=== PATIENT | male | born 1965 | race Caucasian/White ===

== ENCOUNTER → 2022-02-01 | Outpatient (CLI) | payer OTHER, SELFPAY ==
--- NOTE | 2022-02-01 08:17 | US_ITS ---
STUDY: ABDOMINAL ULTRASOUND REASON FOR EXAM: Male, 56 years old. THROMBOCYTOPENIA TECHNIQUE: Transabdominal ultrasound was performed with real-time and static pryor scale imaging. TECHNICAL QUALITY: Adequate. COMPARISON: None. FINDINGS: Liver: The liver is enlarged and measures 20.2 cm. There is a heterogeneous echogenicity of the liver. The bile ducts are within normal limits. There is hepatic color flow. The direction of portal flow is hepatopetal. There is no demonstrated mass lesion. Gallbladder: Normal distended gallbladder. The gallbladder wall measures 3 mm. There is a negative sonographic England''s sign. There is no pericholecystic fluid. There are multiple echogenic structures within the gallbladder, consistent with multiple gallstones. Common Bile Duct (C.B.D.): The common bile duct measures 4 mm. Pancreas: Normal size of the head, body and tail of the pancreas. There is a heterogeneous echogenicity of the pancreas. There is no demonstrated pancreatic mass or cyst. Spleen: There is splenomegaly. The spleen measures 16.4 cm x 7.1 cm x 6.8 cm. Right Kidney: Normal size of the right kidney. The right kidney measures 12.3 cm x 6 cm x 6.4 cm. Normal renal cortex. The right cortex measures 1.7 cm. There is a 3.7 cm x 4.6 x 4.1 cm renal cyst. There is no right hydronephrosis. Left Kidney: Normal size of the left kidney. The left kidney measures 14 cm x 5.7 cm x 5.5 cm. Normal renal cortex. The left cortex measures 2.1 cm. There is no demonstrated renal mass or cyst. There is no left hydronephrosis. Aorta: Unremarkable I.V.C.: The IVC is patent. There is no ascites. US/Abdomen Complete IMPRESSION: Hepatosplenomegaly. Multiple gallstones. Heterogeneous echotexture of the liver and pancreas. Right renal cyst. Electronically Signed: Mk Molina MD at 10:29 EDT ,
== END | disposition home or self-care (01) ==
LOC: US 08:16
PROVIDERS: PCP Student in an Organized Health Care Education/Training Program; Referring Provider Internal Medicine Medical Oncology; Visit Provider Internal Medicine Medical Oncology
DX: D69.6 Thrombocytopenia, unspecified (principal); K80.20 Calculus of gallbladder without cholecystitis without obstruction; N28.1 Cyst of kidney, acquired; R16.2 Hepatomegaly with splenomegaly, not elsewhere classified
CPT/HCPCS: 76700

== ENCOUNTER → 2022-03-27 | Outpatient (CLI) | payer OTHER, SELFPAY ==
--- NOTE | 2022-03-27 07:23 | US_ITS ---
STUDY: ABDOMINAL ULTRASOUND - ELASTOGRAPHY REASON FOR VISIT: Male, 56 years old. Heterogeneous echotexture of the liver. Hepatomegaly. TECHNIQUE: Liver stiffness measurements were obtained on a [employer] RS 85 ultrasound machine using a CA 1-7 probe following the SRU guidelines. 3 measurements were obtained using a 2-D-SWE method. The IQR/M was 22 % suggesting a quality data set. TECHNICAL QUALITY: Adequate. COMPARISON: None. FINDINGS: Liver: Heterogeneous echotexture of the liver parenchyma. Median liver stiffness measured 8.3 kPa. US/Elastography Parenchyma/Organ IMPRESSION: Liver stiffness measures 8.3 kPa compatible with F2-F3 (Mild to moderate liver fibrosis) Metavir score. Electronically Signed: Mk Molina MD at 13:43 EST ,
--- NOTE | 2022-03-27 07:50 | RAD_ITS ---
STUDY: X-RAY CHEST REASON FOR EXAM: Male, 56 years old. POLYCYTHEMIA TECHNIQUE: Frontal and lateral views of the chest. COMPARISON: None. FINDINGS: The lungs are clear and expanded. There is no demonstrated pleural abnormality. Normal size heart. Normal mediastinum and alexis. Normal visualized pulmonary arteries. Normal visualized aortic arch and descending thoracic aorta. Normal visualized thoracic spine. There is deformity of the left eighth rib consistent with an old fracture. There is no demonstrated abnormality of the visualized soft tissue structures of the upper abdomen. RAD/Chest PA and Lateral IMPRESSION: No demonstrated acute cardiopulmonary process. Electronically Signed: Erick Hess MD at 2:00 EST ,
[2022-03-27 09:33] LABS: Absolute Lymphocyte Count 0.91 X10^3/uL (0.83-4.51); Basophil# 0.04 X10^3/uL; Basophil% 0.7 % (0-1); Eosinophils% 3.5 % (0-5); Hematocrit 49.7 % (40-54); Hemoglobin 17.6 g/dL (13.0-16.5); Lymphocyte # 0.91 X10^3/ul (0.83-4.51); Lymphocyte % 15.8 % (19-41); Mean Corp Hgb Conc 35.4 g/dL (32-36); Mean Corpuscular Hgb 31.7 pg (27.0-32.0); Mean Corpuscular Volume 89.5 fL (80-94); Monocyte% 10.4 % (0-10); NRBC Flagged by Analyzer 0 % (0-5); Neutrophil # 3.99 X10^3/uL (2.7-7.7); Neutrophil % 69.1 % (47-70); POSITIVE COUNT YES; Platelet Count 90 K/mm3 (150-450); RBC Distribution Width CV 12.2 % (11.6-14.6); RBC Distribution Width SD 40.1 fl (35.1-43.9); Red Blood Count 5.55 M/mm3 (4.6-6.2); White Blood Count 5.8 K/mm3 (4.4-11.0)
[2022-03-27 10:02] LABS: AST(SGOT) 17 U/L (15-37); Alanine Aminotransfer ALT/SGPT 34 U/L (16-61); Albumin, Serum 3.9 g/dL (3.2-5.0); Alkaline Phosphatase 126 U/L (45-117); Anion Gap 8 (5-15); BUN 20 mg/dL (7-18); BUN/Creat Ratio 18.7 RATIO (10-20); Calcium,Total 9.5 mg/dL (8.5-10.1); Chloride 104 mmol/L (98-107); Creatinine, Serum 1.07 mg/dL (0.70-1.30); EST Glomerular Filtration Rate 75 mL/min (>60); Est Glom Filt Rate - Afr Amer 91 mL/min (>60); Globulin 3.8 g/dL (2.2-4.2); Glucose 104 mg/dL (74-106); LDH 176 U/L (87-241); Potassium 4.3 mmol/L (3.5-5.1); Protein, Total 7.7 g/dL (6.4-8.2); Sodium Level 139 mmol/L (136-145)
[2022-03-29 19:12] LABS: Erythropoietin 13.6 mIU/mL (2.6-18.5)
== END | disposition home or self-care (01) ==
PROVIDERS: PCP Student in an Organized Health Care Education/Training Program; Referring Provider Internal Medicine Medical Oncology; Visit Provider Internal Medicine Medical Oncology
DX: D75.1 Secondary polycythemia (principal); R16.2 Hepatomegaly with splenomegaly, not elsewhere classified
CPT/HCPCS: 36415; 71046; 76981; 80053; 82668; 83615; 85025

== ENCOUNTER → 2022-09-29 | Outpatient (CLI) | payer OTHER, SELFPAY ==
[2022-09-29 13:48] LABS: Prothrombin Time (Protime)PT. 13.6 SECONDS (11.7-14.9)
[2022-09-29 13:52] LABS: Absolute Lymphocyte Count 0.78 X10^3/uL (0.83-4.51); Absolute Neutrophil Count 3.4 X10^3/uL (2.0-7.7); Basophil# 0.04 X10^3/uL; Basophil% 0.8 % (0-1); Eosinophil# 0.19 X10^3/uL; Eosinophils% 3.8 % (0-5); Hematocrit 49.9 % (40-54); Lymphocyte # 0.78 X10^3/ul (0.83-4.51); Lymphocyte % 15.6 % (19-41); Mean Corp Hgb Conc 34.1 g/dL (32-36); Mean Corpuscular Hgb 30.3 pg (27.0-32.0); Mean Corpuscular Volume 88.9 fL (80-94); Mean Platelet Vol. 11.4 fl (6.2-12.0); Monocyte# 0.54 X10^3/uL; Monocyte% 10.8 % (0-10); NRBC Flagged by Analyzer 0 % (0-5); Neutrophil # 3.41 X10^3/uL (2.7-7.7); Neutrophil % 68.4 % (47-70); POSITIVE COUNT YES; Platelet Count 81 K/mm3 (150-450); RBC Distribution Width CV 13.1 % (11.6-14.6); RBC Distribution Width SD 42.5 fl (35.1-43.9); Red Blood Count 5.61 M/mm3 (4.6-6.2)
[2022-09-29 14:15] LABS: Hemoglobin A1c 7.9 % (3.8-5.6)
[2022-09-29 14:24] LABS: AST(SGOT) 29 U/L (15-37); Alanine Aminotransfer ALT/SGPT 44 U/L (16-61); Albumin, Serum 3.7 g/dL (3.2-5.0); Alkaline Phosphatase 133 U/L (45-117); Anion Gap 7 (5-15); BUN 20 mg/dL (7-18); BUN/Creat Ratio 20.8 RATIO (10-20); CRP < 2.90 mg/L (0.0-3.0); Calcium,Total 8.8 mg/dL (8.5-10.1); Chloride 104 mmol/L (98-107); Creatinine, Serum 0.96 mg/dL (0.70-1.30); EST Glomerular Filtration Rate 85 mL/min (>60); Est Glom Filt Rate - Afr Amer 103 mL/min (>60); Ferritin 204 ng/mL (26-388); Globulin 3.6 g/dL (2.2-4.2); Glucose 189 mg/dL (74-106); LDH 194 U/L (87-241); Potassium 4.1 mmol/L (3.5-5.1); Protein, Total 7.3 g/dL (6.4-8.2); Sodium Level 136 mmol/L (136-145)
[2022-09-29 14:37] LABS: HIV - WCH Non-Reactive (Nonreactive)
[2022-09-29 15:20] LABS: Differential Comment SCANNED; Differential Indicated SCAN CRITERIA MET; Erythrocyte Sedimentation Rate 9 mm/hr (0-20)
[2022-10-02 13:07] LABS: Anti-Centromere B Ab <0.2 AI (0.0-0.9); Anti-Chromatin 0.4 AI (0.0-0.9); Anti-Jo <0.2 AI (0.0-0.9); Anti-Mitochondrial AB <20.0 Units (0.0-20.0); Anti-Scleroderma-70 AB <0.2 AI (0.0-0.9); Anti-dsDNA Ab <1 IU/mL (0-9); RNP Ab <0.2 AI (0.0-0.9); SJOGREN'S Anti-SS-A test < 0.2 AI (0.0-0.9); SJOGREN'S Anti-SS-B test < 0.2 AI (0.0-0.9); Smith Ab <0.2 AI (0.0-0.9)
[2022-10-04 09:09] LABS: AFP, Tumor Marker 2.1 ng/mL (0.0-8.4); Angiotensin Convert Enzyme 72 U/L (14-82); Anti-Smooth Muscle ABS 13 Units (0-19); CMV Acute Antibody IgM < 30.0 AU/mL (0.0-29.9); CMV Antibody IgG < 0.60 U/mL (0.00-0.59); CMV by PCR Negative (Negative); Ceruloplasmin 19.3 mg/dL (16.0-31.0); Copper, Serum or Plasma 80 ug/dL (69-132); Cytoplasmic Ab (C-ANCA) <1:20 titer (Neg:<1:20); HEPATITIS B SURFACE AG Negative (Negative); Haptoglobin 96 mg/dL (29-370); Hep C Antibodies Non Reactive (Non Reactive); Hepatitis A IgM Antibody Negative (Negative); Hepatitis B Core AB IgM Negative (Negative); Perinuclear Ab (P-ANCA) <1:20 titer (Neg:<1:20)
== END | disposition home or self-care (01) ==
LOC: LAB 12:56
PROVIDERS: PCP Student in an Organized Health Care Education/Training Program; Referring Provider Internal Medicine Gastroenterology; Visit Provider Internal Medicine Gastroenterology
DX: R16.2 Hepatomegaly with splenomegaly, not elsewhere classified (principal)
CPT/HCPCS: 36415; 80053; 80074; 82105; 82140; 82164; 82390; 82525; 82728; 83010; 83036; 83516; 83615; 85025; 85610; 85652; 86140; 86225; 86235; 86256; 86644; 86645; 86703; 87496

== ENCOUNTER → 2022-12-28 | Outpatient (CLI) | payer OTHER, SELFPAY ==
--- NOTE | 2022-12-28 09:07 | US_ITS ---
STUDY: ABDOMINAL ULTRASOUND - RIGHT UPPER QUADRANT REASON FOR VISIT: Male, 57 years old liver/elasto TECHNIQUE: Ultrasound evaluation of the right upper quadrant was performed with real-time and static pryor-scale imaging. TECHNICAL QUALITY: Limited. Examination limited by bowel gas. COMPARISON: Comparison is made with prior study dated February 01, 2022. FINDINGS: Liver: The liver is enlarged and measures 18.4 cm. There is increased echogenicity consistent with fatty infiltration. The bile ducts are within normal limits. There is hepatic color flow. The direction of portal flow is hepatopetal. There is no demonstrated mass lesion. Gallbladder: Normal distended gallbladder. The gallbladder wall measures 3 mm. There is a negative sonographic England''s sign. There is no pericholecystic fluid. There are multiple echogenic structures within the gallbladder, consistent with multiple gallstones. Common Bile Duct (C.B.D.): The common bile duct measures 4 mm. Pancreas: Normal size of the head, body and tail of the pancreas. There is increased echogenicity of the pancreas. Limited evaluation due to overlying bowel gas. Right Kidney: Normal size of the right kidney. The right kidney measures 12.1 cm x 5.7 cm x 6.5 cm. Normal renal cortex. The right cortex measures 2.3 cm. There is a 5 cm x 5.8 cm x 4.7 cm right renal cyst. There is no right hydronephrosis. IMPRESSION: Hepatomegaly and fatty infiltration of the liver. Right renal cyst. Electronically Signed: Mk Molina MD at 16:18 EDT , STUDY: ABDOMINAL ULTRASOUND - ELASTOGRAPHY REASON FOR VISIT: Male, 57 years old. Fatty liver. TECHNIQUE: Liver stiffness measurements were obtained on a [employer] 85 ultrasound machine using a CA 1-7 probe following the SRU guidelines. 3 measurements were obtained using a 2-D-SWE method. TheIQR/M was 17 % suggesting a quality data set. TECHNICAL QUALITY: Adequate. COMPARISON: Comparison is made with prior study dated March 27, 2022. FINDINGS: Liver: There is no demonstrated mass lesion. Median liver stiffness measured 9.5 kPa. Abdomen: There is no demonstrated mass lesion. US/Abdomen Limited IMPRESSION: Liver stiffness measures 9.5 kPa compatible with F2-F3 (Mild to moderate liver fibrosis) Metavir score. Electronically Signed: Mk Molina MD at 16:22 EDT ,
== END | disposition home or self-care (01) ==
LOC: US 09:03
PROVIDERS: PCP Student in an Organized Health Care Education/Training Program; Referring Provider Internal Medicine Gastroenterology; Visit Provider Internal Medicine Gastroenterology
DX: R16.2 Hepatomegaly with splenomegaly, not elsewhere classified (principal)
CPT/HCPCS: 76705; 76981

== ENCOUNTER → 2023-01-30 | Outpatient (CLI) | payer OTHER, SELFPAY ==
[2023-01-30] VITALS (9 sets, daily range): BP systolic 134–156; BP diastolic 73–93; PULSE 62–78; RESP 14–25; TEMP 37.3; O2SAT 91–97; BMI 38.0
--- NOTE | 2023-01-30 07:57 | CT_ITS ---
PROCEDURE: CT DIRECTED CORE LIVER BIOPSY INDICATION: Male, 57 years old. Cirrhosis. PHYSICIAN: Dr. Jesse Alfonso CONSENT: Written informed consent was obtained having explained the risks, benefits and alternatives in detail with the patient who accepted the risks and agreed to proceed. Laboratory review and clinical assessment was performed. CONSCIOUS SEDATION PROTOCOL: The Drugs used were: 2 mg Versed, IV., and 50 mcg Fentanyl, IV. The sedation time was: 17 minutes. Conscious sedation was started at 8:53 AM and terminated at night. The conscious sedation protocol was independently monitored. RADIATION DOSAGE (If Supplied By Facility): CTDIvol = ( 24 ) mGy, DLP = ( 589.66 ) mGycm. Individualized dose optimization techniques were utilized. Individualized dose optimization techniques were used for this CT. TECHNIQUE: Using CT image guidance with image documentation, a suitable location in the left lobe of the liver was identified. Using an anterior approach, puncture of the liver was uneventful with an 18-gauge core needle system. 3, 18-gauge core samples were obtained, and submitted in formalin to the pathologist for further assessment. Followup CT scan revealed no distinct sequelae. CT/Biopsy/Inj or Needle Placement IMPRESSION: 1. CT directed core needle biopsy of the liver, using CT image guidance with image documentation as described. 2. Conscious Sedation protocol utilized with independent monitoring. Electronically Signed: Mk Molina MD at 9:44 EDT ,
--- NOTE | 2023-01-30 07:57 | CT_ITS ---
STUDY: CT ABDOMEN WITH AND WITHOUT CONTRAST REASON FOR EXAM: Male, 57 years old. Tripple phase. Hepatosplenomegaly. Polycythemia. RADIATION DOSAGE (If Supplied By Facility): CTDIvol = ( 24.47 ) mGy, DLP = ( 1972.25 ) mGycm TECHNIQUE: Transaxial images were obtained pre and post I.V. administration of IV 100mL Isovue-300, and with oral contrast. Sagittal and coronal images were reconstructed. Individualized dose optimization techniques were used for this CT. COMPARISON: None. FINDINGS: Mild degree of bibasilar atelectasis. Coronary artery calcification. There is hepatomegaly with diffuse hepatic enlargement. Diffuse fatty infiltration of the liver. Calcified granulomas in the liver. There are multiple gallstones. There is moderate splenomegaly. Normal pancreas. Normal bilateral adrenal glands. There is a 4.7 sign by 5.2 cm cyst in the upper lateral aspect of the right kidney. Normal left kidney. Normal visualized stomach. Normal small intestine. Normal colon. The appendix is visualized and appears normal. There is scattered atherosclerotic calcification of the abdominal aorta, without a demonstrated aneurysm. Normal inferior vena cava. Normal retroperitoneum. Normal abdominal wall. There are degenerative changes of the visualized lumbar spine. CT/Abdomen W/WO IV Contrast IMPRESSION: Hepatosplenomegaly. Multiple small gallstones. Right renal cyst. Electronically Signed: Mk Molina MD at 15:07 EDT ,
[2023-01-30] MEDS: 0.9% Saline Lock 10 ML Syringe IV (08:10)
[2023-01-30 08:16] LABS: Erythrocyte Sedimentation Rate 5 mm/hr (0-20)
[2023-01-30 08:20] LABS: Absolute Lymphocyte Count 1.04 X10^3/uL (0.83-4.51); Absolute Neutrophil Count 3.2 X10^3/uL (2.0-7.7); Basophil# 0.04 X10^3/uL; Basophil% 0.8 % (0-1); Eosinophil# 0.21 X10^3/uL; Eosinophils% 4.2 % (0-5); Hematocrit 49.4 % (40-54); Hemoglobin 17.1 g/dL (13.0-16.5); Lymphocyte # 1.04 X10^3/ul (0.83-4.51); Lymphocyte % 20.6 % (19-41); Mean Corp Hgb Conc 34.6 g/dL (32-36); Mean Corpuscular Hgb 31.5 pg (27.0-32.0); Mean Corpuscular Volume 91.1 fL (80-94); Mean Platelet Vol. 11.2 fl (6.2-12.0); Monocyte# 0.53 X10^3/uL; Monocyte% 10.5 % (0-10); NRBC Flagged by Analyzer 0 % (0-5); Neutrophil # 3.22 X10^3/uL (2.7-7.7); Neutrophil % 63.7 % (47-70); POSITIVE COUNT YES; Platelet Count 87 K/mm3 (150-450); RBC Distribution Width CV 12.9 % (11.6-14.6); Red Blood Count 5.42 M/mm3 (4.6-6.2); White Blood Count 5.1 K/mm3 (4.4-11.0)
[2023-01-30 08:23] LABS: International Normalized Ratio 1.1
[2023-01-30] MEDS: 0.9% Normal Saline (250mL Bag) 250 ML 15 ML IV (08:24)
[2023-01-30 08:28] LABS: ALB/GLOB Ratio 1.1 RATIO (0.9-2.4); AST(SGOT) 17 U/L (15-37); Alanine Aminotransfer ALT/SGPT 32 U/L (16-61); Albumin, Serum 3.7 g/dL (3.2-5.0); Alkaline Phosphatase 116 U/L (45-117); Anion Gap 6 (5-15); BUN 20 mg/dL (7-18); BUN/Creat Ratio 17.5 RATIO (10-20); CRP 3.71 mg/L (0.0-3.0); Chloride 105 mmol/L (98-107); Creatinine, Serum 1.14 mg/dL (0.70-1.30); EST Glomerular Filtration Rate 70 mL/min (>60); Est Glom Filt Rate - Afr Amer 84 mL/min (>60); Estimated Creatinine Clearance 72.04 ml/min; Globulin 3.5 g/dL (2.2-4.2); Glucose 122 mg/dL (74-106); LDH 177 U/L (87-241); Potassium 4.3 mmol/L (3.5-5.1); Protein, Total 7.2 g/dL (6.4-8.2); Sodium Level 137 mmol/L (136-145)
[2023-01-30] MEDS: Midazolam 2 MG/2 ML Syringe IV (08:53)
[2023-01-30] MEDS: fentaNYL 100 MCG/2 ML Ampul IV (08:54)
[2023-01-30] MEDS: Lidocaine 2% (20 ml mdv) 20 ML Vial INFILT (09:03)
--- NOTE | 2023-01-30 09:05 | LIVB_PTH ---
PATIENT: LIZ RUSSO LOC: CT U#:[id number] AGE/SX: 57/M ROOM: RE01/30/[address]: Dr. Bret Izquierdo DO : 1965 BED: DIS: 01/30/2023 SPEC #: [id number] RECD: 01/30/23 09:19 STATUS: JOANA REGideon #: [id number] SARA: 01/30/23 09:[address]: Bret Izquierdo DEPT: SURGICAL PATHOLOGY RECD BY: Rosalie Wood ENTERED: 01/30/23 09:33 SP TYPE: LIVER BX OTHR DR: Dr. Danish Lowe DO Tissues: Liver, NOS Procedures: PAS with Diastase (control) Trichrome (control) Special Stain Group II PAS Stain (control) Surgery Specimen Level V Retic (control) Iron Stain (control) HEADER OPERATION: Liver biopsy PRE-OP DIAGNOSIS: Hepatomegaly TISSUE SUBMITTED: Liver 18-gauge x3 MICROSCOPIC DIAGNOSIS Liver, CT-guided core biopsy: Cirrhosis. Chronic hepatitis, grade 3. Macrovesicular steatosis. See comment. AM:adeline 01/31/2023 COMMENT There is broad band fibrosis with bridging fibrosis and cirrhosis. The inflammation expands the portal areas and extends into hepatic parenchyma, focally. Reticulin stain reveals a normal hepatic parenchymal architecture. Iron stain does not reveal accumulation of intraparenchymal iron. PAS and PASD stains do not reveal accumulation of abnormal proteins. Trichrome stain confirms broad band fibrosis and cirrhosis. Clinical correlation is suggested. Case has been reviewed in consultation with Dr. Almonte who concurs with the above diagnosis. IDC:[email or web address] MICROSCOPIC DESCRIPTION Slides are reviewed. GROSS DESCRIPTION Received is one container labeled with the patient's name and not further designated. The specimen consists of three elongated fragments of valdez soft tissue measuring in aggregate 1.5 x 0.3 x 0.1 cm. The specimen is totally submitted in one cassette. / José 01/30/2023 TC:3 CPT: 07444, 19779 x5
== END | disposition home or self-care (01) ==
PROVIDERS: PCP Student in an Organized Health Care Education/Training Program; Referring Provider Internal Medicine Gastroenterology; Visit Provider Internal Medicine Gastroenterology
DX: K74.60 Unspecified cirrhosis of liver (principal); K73.9 Chronic hepatitis, unspecified; K76.0 Fatty (change of) liver, not elsewhere classified; R16.2 Hepatomegaly with splenomegaly, not elsewhere classified
CPT/HCPCS: 47000; 36415; 74170; 77012; 80053; 82140; 83615; 85025; 85610; 85652; 86140; 88307; 88313; 99156; J7050; Q9967; A4216

== ENCOUNTER 2023-03-22 07:45 | Day surgery (SDC) | payer OTHER, SELFPAY ==
[2023-03-22] VITALS (7 sets, daily range): BP systolic 106–145; BP diastolic 62–92; PULSE 75–82; RESP 16; TEMP 36.5–37.1; O2SAT 93–95; BMI 37.3
--- NOTE | 2023-03-22 | EGD_PTH ---
PATIENT: LIZ RUSSO LOC: EN U#:[id number] AGE/SX: 57/M ROOM: RE03/22/[address]: Dr. Bret Izquierdo DO : 1965 BED: DIS: 03/22/2023 SPEC #: [id number] RECD: 03/22/23 10:34 STATUS: JOANA ROYER #: [id number] SARA: 03/22/23 00:[address]: Bret Izquierdo DEPT: SURGICAL PATHOLOGY RECD BY: Najma Montes ENTERED: 03/22/23 12:28 SP TYPE: EGD BIOPSY OT DR: Dr. Danish Lowe DO Tissues: A - Gastric mucous membrane B - Esophageal mucous membrane Procedures: Special Stain Group II Surgery Specimen Level IV Alcian Blue/PAS (control) HEADER OPERATION: EGD with biopsy PRE-OP DIAGNOSIS: Hepatosplenomegaly, polycythemia, thrombocytopenia, fatty liver TISSUE SUBMITTED: A - Antrum biopsy for H. pylori and path, B - Distal esophagus biopsy MICROSCOPIC DIAGNOSIS A. Antrum, biopsy: Mild gastritis. See microscopic description and comment. B. Distal esophagus, biopsy: Fragments of gastric mucosa with chronic inflammation. A detached fragment of fibrinopurulent exudate, consistent with ulceration. Intestinal metaplasia (goblet cell metaplasia) not identified. See comment. SJ:adeline 03/23/2023 COMMENT A. The results of immunohistochemistry for Helicobacter pylori will be reported separately ([id number]). B. Alcian blue/PAS stain with matched control is used in the evaluation of the specimen. MICROSCOPIC DESCRIPTION Slides are reviewed. A. The specimen shows fragments of gastric mucosa with chronic inflammatory cell infiltrates in the lamina propria consisting of lymphocytes and plasma cells, consistent with mild chronic gastritis. GROSS DESCRIPTION A - Received in fixative is one container labeled with the patient's name and designated antrum biopsy. The specimen consists of two irregular fragments of light valdez soft tissue that in aggregate measure 1.0 x 0.8 x 0.1 cm. The specimen is totally submitted in one cassette. B - Received in fixative is one container labeled with the patient's name and designated distal esophagus biopsy. The specimen consists of multiple irregular fragments of light valdez soft tissue that in aggregate measure 0.6 x 0.5 x 0.1 cm. The specimen is totally submitted in one cassette. / AM:adeline 03/22/2023 TC:2 CPT: 45696 x2, 08101
[2023-03-22] MEDS: Lactated Ringers 1,000 ML 15 ML IV (08:11)
[2023-03-22 08:30] LABS: Bedside Glucose 155 mg/dL (74-106)
--- NOTE | 2023-03-22 09:15 | IMM_PTH ---
PATIENT: LIZ RUSSO LOC: EN U#:[id number] AGE/SX: 57/M ROOM: RE03/22/[address]: Dr. Bret Izquierdo DO : 1965 BED: DIS: 03/22/2023 SPEC #: [id number] RECD: 03/22/23 14:10 STATUS: JOANA ROYER #: [id number] SARA: 03/22/23 09:[address]: Bret Izquierdo DEPT: IMMUNOHISTOCHEMISTRY RECD BY: Zena Tenorio ENTERED: 03/22/23 14:10 SP TYPE: IMMUNO OTHR DR: Dr. Danish Lowe DO Tissues: A - Stomach, NOS Procedures: H Pylori (initial) PHYSICIAN & INSTITUTION [place] [id number] SPECIMEN INFORMATION: Tissue Source: A - Antrum biopsy Clinical Info: Hepatosplenomegaly, polycythemia, thrombocytopenia, fatty liver Specimen Number: [id number] CPT code: 91660 METHODOLOGY: Deparaffinized sections of prefer/formalin-fixed tissue or PAP/DQ stained slides are incubated with monoclonal/polyclonal antibodies/oligonucleotide probes. Localization is made via biotin free immunoperoxidase method. Appropriate controls are performed and reacted as expected. Results on target cell population are indicated in the following table: RESULTS: ANTIBODY / CLONE RESULT Block A H Pylori (polyclonal) negative These tests were developed and their performance characteristics determined by [facility]. They may not have been cleared or approved by the U.S. Food and Drug Administration. The FDA has determined that such clearance or approval is not necessary. The above immunohistochemical/dualISH markers are ordered and reviewed by the Pathologist. INTERPRETATION: A. Antrum, biopsy: Negative for Helicobacter pylori organisms. SJ:adeline 03/23/2023
--- NOTE | 2023-03-22 10:04 | HP.PCM_ITS ---
History and Physical Date of Admission: 03/22/23 57 M who presents to the office today for PMH HTN, hyperlipidemia, obesity, DM II with retinopathy, hypothyroid [facility] Dr. Hernández established who follows for chronically low platelets which are typically in the 90?s US abd 9.14.22 hepatomegaly measuring 20.2cm with heterogeneous echogenicity; splenomegaly. Fib4 Score 1.88 Elastography 11.7.22 with hepatic stiffness measuring 8.3kPa. *BGI established 09.29.22 Notes alcohol use of 6beers a night intermittently. Denies history of IV drug use, blood transfusion, FH of liver disease. Biochemical CBC (plt L81), ESR, coag, CMP, ferritin, LDH, CRP, CASSIDY comp, AMA, HIV, CHALINO, AFP, ANCA, ASM, ceruloplasmin, CMV, copper, haptoglobin, hepatitis without pertinent abnormality. ? A1c H7.9, AST 29-ALT 44- AP H133, t.bili H1.1, ammonia H40. Fib4 3.18; MELD 7 Contact 10.05.22 with biochemical results; recommend strict DMII management. Proceed with US and elastography. ? US and elastography 12.28.22 pending OV 01.12.23 He has tried to make some dietary/exercise changes. Reports his A1c continues to be elevated; PCP made some medications changes. ROS Const Constitutional: No anorexia, fatigue, fever(s), weight change or sleep problems Eyes Eyes: No change in vision ENT ENT: No abnormal hearing, difficulty swallowing, mouth lesions, tongue swelling or throat swelling Resp Respiratory: No cough or shortness of breath Cardio Cardiology: No chest pain at rest, chest pain with exertion, shortness of breath or dyspnea on exertion Gastro GI: No difficulty swallowing Genitourinary Male: No difficulty urinating or burning urination Musc Musculoskeletal: No joint pain, joint swelling, muscle weakness or decreased muscle mass Skin Skin: No hair loss in leg, yellowing of the eye, itchy eyes, rash, skin ulcer or skin swelling Neuro Neurology: No abnormal hearing, abnormal movements, confusion, unsteady gait/balance or memory loss Psych Psychiatric: No anxiety, No confusion and No memory loss Endo Endocrine: No fatigue or weight change Aller/Imm Allergy/Immunologic: No itchy eyes, throat swelling or tongue swelling Robin/Lymp Hematologic/Lymphatic: No easy bleeding, easy bruising or enlarged lymph nodes Exam Const General: cooperative and comfortable Nutritional Appearance: average body habitus and well nourished [facility] Head: normal to inspection Ears: hearing grossly normal bilaterally Nose: external nose normal Face and sinus: normal facial exam Mouth: oral mucosae normal Throat: posterior oropharynx normal Eyes General: appearance normal, both eyes and all related structures Neck Neck: normal visual inspection Chest Chest palpation & inspection: normal inspection of the chest and normal palpation of entire chest wall Resp Effort & Inspection: normal respiratory effort Auscultation: Bilateral: Clear to Auscultation Cardio Palpation: normal PMI Rate: regular rate Rhythm: regular rhythm GI Inspection: normal to inspection Auscultation: normal bowel sounds Percussion: normal to percussion Palpation: no hepatosplenomegaly Skin General: no rashes or lesions noted Neuro General: patient alert Extrem General: normal to inspection Psych Affect: normal affect Quality Reporting Tobacco Screening ([facility] 138) Smoking Status: Never smoker Assessment and Plan Assessment and Plan (1) Hepatosplenomegaly: Status: Chronic (2) Polycythemia: Status: Chronic Comment: Hgb 17.3 on 02/07/2022 with high Erythropoietin level. Repeat erythropoietin level on 03/27/2022 was 13.6 Secondary Polycythemia may be due to liver disease. Carboxyhemoglobin is not significantly high. CXR is normal (3) Thrombocytopenia: Status: Chronic Comment: Platelet 94 on 01/31/2022. Has immunity to EBV, no acute infection to explain thrombocytopenia. Hepatitis profile/HIV are normal. May be related to Etoh use. (4) Fatty (change of) liver, not elsewhere classified: Status: Acute Plan: 57-year-old with past medical history of diabetes mellitus, alcoholic and nonalcoholic fatty liver disease complicated by erythrocytosis with polycythemia, thrombocytopenia, splenomegaly, hepatomegaly. He is initial evaluation for chronic. His 4 score was increased to 3.8. His initial FibroScan 8.3 kPa. I do not agree with assessment. Therefore he will need to get a triple phase CT scan and a the liver biopsy. I encouraged him not to drink any alcohol at all times since his already underlying liver disease to possible cirrhosis. He is okay with getting a liver biopsy. Pending triple phase CT we will need to get alpha-fetoprotein. Orders: Orders Ammonia Today R16.2 - Hepatomegaly with splenomegaly, not elsewhere classified Comprehensive Metabolic Profil Today R16.2 - Hepatomegaly with splenomegaly, not elsewhere classified LDH Today R16.2 - Hepatomegaly with splenomegaly, not elsewhere classified Albumin, Serum Today R16.2 - Hepatomegaly with splenomegaly, not elsewhere classified CRP Today R16.2 - Hepatomegaly with splenomegaly, not elsewhere classified Prothrombin Time w/INR Today R16.2 - Hepatomegaly with splenomegaly, not elsewhere classified CBC W/Diff, Automated Today R16.2 - Hepatomegaly with splenomegaly, not elsewhere classified Erythrocyte Sed Rate Today R16.2 - Hepatomegaly with splenomegaly, not elsewhere classified Abdomen/Pelvis WITH Contrast Today R16.2 - Hepatomegaly with splenomegaly, not elsewhere classified Biopsy/Inj or Needle Placement Today R16.2 - Hepatomegaly with splenomegaly, not elsewhere classified I have examined the patient and the H&P has been reviewed. There are no clinical changes since date of exam.
--- NOTE | 2023-03-22 10:24 | OP.EGD_ITS ---
Patient Name: Jacques Escamilla Procedure Date: 03/22/2023 10:04 AM Date of : 1965 Age: 57 Procedure: Upper GI endoscopy Indications: Functional Dyspepsia, Cirrhosis with UGI bleeding rule out esophageal varices Providers: Bret Izquierdo DO Patient Profile: This is a 57 year old male. Refer to note in patient chart for documentation of history and physical. Patient has symptoms of chronic nausea. Complications: No immediate complications. Procedure: Pre-Anesthesia Assessment: - Prior to the procedure, a History and Physical was performed, and patient medications and allergies were reviewed. The risks and benefits of the procedure and the sedation options and risks were discussed with the patient. All questions were answered and informed consent was obtained. Patient identification and proposed procedure were verified by the physician in the pre-procedure area. Mental Status Examination: alert and oriented. Airway Examination: normal oropharyngeal airway and neck mobility. Prophylactic Antibiotics: The patient does not require prophylactic antibiotics. Prior Anticoagulants: The patient has taken no anticoagulant or antiplatelet agents. After reviewing the risks and benefits, the patient was deemed in satisfactory condition to undergo the procedure. The anesthesia plan was to use monitored anesthesia care (MAC). Immediately prior to administration of medications, the patient was re-assessed for adequacy to receive sedatives. The heart rate, respiratory rate, oxygen saturations, blood pressure, adequacy of pulmonary ventilation, and response to care were monitored throughout the procedure. The physical status of the patient was re-assessed after the procedure. After obtaining informed consent, the endoscope was passed under direct vision. Throughout the procedure, the patient's blood pressure, pulse, and oxygen saturations were monitored continuously. The Endoscope was introduced through the mouth, and advanced to the second part of duodenum. The upper GI endoscopy was accomplished without difficulty. The patient tolerated the procedure well. Scope In: 10:12:58 AM Scope Out: 10:17:36 AM Total Procedure Duration Time 0 hours 4 minutes 38 seconds Findings: LA Grade B (one or more mucosal breaks greater than 5 mm, not extending between the tops of two mucosal folds) esophagitis with no bleeding was found 38 to 40 cm from the incisors. Biopsies were taken with a cold forceps for histology. Verification of patient identification for the specimen was done. Estimated blood loss was minimal. Mild portal hypertensive gastropathy was found in the gastric body. Moderate gastric antral vascular ectasia without bleeding was present in the gastric antrum. Biopsies were taken with a cold forceps for histology. Verification of patient identification for the specimen was done. Estimated blood loss was minimal. Biopsies were taken with a cold forceps for Helicobacter pylori testing. Verification of patient identification for the specimen was done. Estimated blood loss was minimal. No gross lesions were noted in the first portion of the duodenum. Impression: - LA Grade B reflux esophagitis with no bleeding. Biopsied. - Portal hypertensive gastropathy. - Gastric antral vascular ectasia without bleeding. Biopsied. - No gross lesions in the first portion of the duodenum. Recommendation: - Discharge patient to home. - Resume previous diet. - Continue present medications. - Await pathology results. - Use Protonix (pantoprazole) 20 mg PO BID for 8 weeks. Procedure Code(s): --- Professional --- 49812, Esophagogastroduodenoscopy, flexible, transoral; with biopsy, single or multiple CPT copyright 2021 [employer]. All rights reserved. The codes documented in this report are preliminary and upon filter tender jelly review may be revised to meet current compliance requirements. Bret Izquierdo DO 03/22/2023 10:24:08 AM This report has been signed electronically. Number of Addenda: 0 Note Initiated On: 03/22/2023 10:04 AM
--- NOTE | 2023-03-22 10:24 | OP.CCLET_ITS ---
03/22/2023 Danish Lowe Do Re : Upper GI endoscopy procedure for Jacques Garciar Mynor This procedure was performed on March. My impressions and recommendations are as follows: Impressions : - LA Grade B reflux esophagitis with no bleeding. Biopsied. - Portal hypertensive gastropathy. - Gastric antral vascular ectasia without bleeding. Biopsied. - No gross lesions in the first portion of the duodenum. Recommendations : - Discharge patient to home. - Resume previous diet. - Continue present medications. - Await pathology results. - Use Protonix (pantoprazole) 20 mg PO BID for 8 weeks. My findings are described in the full procedure note, which is enclosed. If I can be of further assistance, please feel free to contact me at . Sincerely, Bret Izquierdo, 03/22/2023 10:24:08 AM This report has been signed electronically.
== END 2023-03-22 11:13 | disposition home or self-care (01) ==
LOC: EN 07:46 → AC 07:48
PROVIDERS: PCP Student in an Organized Health Care Education/Training Program; Referring Provider Student in an Organized Health Care Education/Training Program; Visit Provider Internal Medicine Gastroenterology
PROC: 0DJ08ZZ Inspection of Upper Intestinal Tract, Via Natural or Artificial Opening Endoscopic (ICD-10-PCS; CPT 43235; principal; 2023-03-22 09:10)
DX: K29.70 Gastritis, unspecified, without bleeding (principal); K76.6 Portal hypertension; K74.60 Unspecified cirrhosis of liver; E11.319 Type 2 diabetes mellitus with unspecified diabetic retinopathy without macular edema; E66.01 Morbid (severe) obesity due to excess calories; D69.6 Thrombocytopenia, unspecified; D75.1 Secondary polycythemia; K76.0 Fatty (change of) liver, not elsewhere classified; R16.2 Hepatomegaly with splenomegaly, not elsewhere classified; K31.819 Angiodysplasia of stomach and duodenum without bleeding; K21.00 Gastro-esophageal reflux disease with esophagitis, without bleeding; I10 Essential (primary) hypertension; E78.5 Hyperlipidemia, unspecified; E03.9 Hypothyroidism, unspecified; Z79.82 Long term (current) use of aspirin; Z79.890 Hormone replacement therapy; Z79.84 Long term (current) use of oral hypoglycemic drugs; Z79.899 Other long term (current) drug therapy; Z68.37 Body mass index [BMI] 37.0-37.9, adult
CPT/HCPCS: 43239; 82962; 88305; 88313; 88342; J7120; J2405

== ENCOUNTER 2023-07-10 14:46 | Observation (INO) | payer OTHER, SELFPAY ==
[2023-07-10 14:47] VITALS: BP 152/94; PULSE 76; RESP 16; TEMP 36.1; O2SAT 98; BMI 37.1
--- NOTE | 2023-07-10 15:19 | EKG12_ITS ---
Test Reason : DIZZY Blood Pressure : / mmHG Vent. Rate : 071 BPM Atrial Rate : 071 BPM P-R Int : 206 ms QRS Dur : 074 ms QT Int : 410 ms P-R-T Axes : 243 -07 088 degrees QTc Int : 445 ms Unusual P axis, possible ectopic atrial rhythm Low voltage QRS Inferior infarct , age undetermined Abnormal ECG Confirmed by DANIEL CARROLL, JIMMY ([id number]), news editor ADI OSEGUERA ([id number]) on 07/11/2023 9:09:11 AM Referred By: DAGO/DUSTIN Confirmed By:JIMMY SANCHEZ MD
--- NOTE | 2023-07-10 15:19 | CT_ITS ---
EXAMINATION : Head CT w/out contrast HISTORY : dizziness COMPARISON : None. TECHNIQUE : Multiple contiguous axial images were obtained from the skull base to the vertex without intravenous contrast. A radiation dose optimization technique was used for this scan. FINDINGS : There is no evidence for acute intracranial hemorrhage, mass effect, or midline shift. There is no extra-axial fluid collection. There are periventricular white matter changes consistent with chronic microvascular ischemic disease. There is sulcal widening and ventricular enlargement consistent with cerebral atrophy. There is normal walker-white differentiation, without CT evidence of acute ischemia or infarct. The skull base and calvarium are unremarkable. The orbits are unremarkable. The paranasal sinuses are clear. The mastoid air cells are well-aerated. The soft tissues are unremarkable. CT/Brain/Head without Contrast IMPRESSION: No acute intracranial abnormality. Chronic involutional and ischemic changes of the brain. Electronically Signed: Gennaro Pacheco MD at 16:49 EST ,
--- NOTE | 2023-07-10 15:27 | EDS_ITS ---
HPI History of Present Illness Chief Complaint: Dizziness Narrative Narrative: 58-year-old male presenting with complaints of lightheadedness and dizziness. Patient states that he was sitting on his couch this morning at about 6:15 AM when he felt like the whole couch flipped over although it did not. Patient denies acute onset headache. He does state that his vision was blurry for about 5 to 10 seconds. At this point the patient was able to get up and walk outside. He states he started to struck and while he was walking back to sit down on his porch he noted that he was diaphoretic. He denies any chest pain and states he was not short of breath. States he was not lightheaded or dizzy at that point. He states he had some intermittent feelings of lightheadedness today but denies any vertiginous symptoms. His vision has remained normal after the first 5 send seconds. Patient is a history of stroke. He is not on blood thinners. No history of trauma. Patient does have history of diabetes, hypertension, hypothyroidism. Patient states is on something for liver disease but he does not know what it was. [facility] Medical History Alcohol use Chewing tobacco nicotine dependence Diabetes High cholesterol History of stress test Hypertension Insulin dependent diabetes mellitus Thyroid disease Wears glasses Home Medications diltiazem HCl 180 mg capsule,extended release 24 hr 180 mg PO DAILY 01/27/22 [History Last Taken 03/22/23] dulaglutide 1.5 mg/0.5 mL subcutaneous pen injector 1.5 mg subcut QWEEK 01/27/22 [History Last Taken 07/09/23] empagliflozin 25 mg tablet 25 mg PO DAILY 01/27/22 [History Last Taken Unknown] insulin glargine U-300 conc 300 unit/mL (3 mL) subcutaneous pen (Toujeo Max U- 300 SoloStar) 60 unit subcut DAILY 01/27/22 [History Last Taken Unknown] levothyroxine 100 mcg capsule 200 mcg PO DAILY 01/27/22 [History Last Taken 03/22/23] metformin 500 mg tablet 1,000 mg PO BID 01/27/22 [History Last Taken Unknown] rosuvastatin 20 mg tablet 20 mg PO DAILY 01/27/22 [History Last Taken Unknown] aspirin 81 mg tablet,delayed release (Adult Low Dose Aspirin) 81 mg PO DAILY 03/19/23 [History Last Taken 03/21/23] irbesartan 300 mg-hydrochlorothiazide 12.5 mg tablet 1 tab PO DAILY 03/19/23 [History Last Taken Unknown] sildenafil 25 mg tablet 50 mg PO DAILY PRN erectile dysfunction 07/10/23 [History Last Taken Unknown] Allergy/AdvReac Type Severity Reaction Status Date / Time No Known Allergies Allergy Verified 07/10/23 14:50 Family History Mother Cancer breast Diabetes Hypertension CVA (cerebral vascular accident) Sister Hypertension Cancer breast Father Diabetes Heart disease Hypertension Surgical History History of liver biopsy Hx of hernia repair Social History Smoking Status: Current some day smoker tobacco type: smokeless tobacco ROS ROS ED Constitutional Constitutional ED: Reports sweats; Denies chills or fever(s) Eyes Eyes: Reports blurry vision; Denies change in vision ENT ENT ED: Denies ear pain or sore throat Cardiovascular Cardiovascular: Reports other Details: Lightheadedness ; Denies chest pain, palpitations or racing heartbeat Respiratory/Chest Respiratory/Chest: Denies cough, dyspnea or sputum Gastrointestinal Gastrointestinal: Denies abdominal pain, constipation, diarrhea, nausea or vomiting Genitourinary Genitourinary ED: Denies dysuria, hematuria or urinary frequency Musculoskeletal Musculoskeletal: Denies arthralgias, myalgias or neck pain Integumentary Denies abscess, Abrasions or rash Neurologic Neurologic: Denies headache(s), paresthesias or weakness Psychiatric Psychiatric: Denies anxiety, depression, suicidal ideation or suicidal thoughts Endocrine Endocrinology: Denies polydipsia or polyuria EXAM Physical Exam Const Vital Signs: 07/10/23 14:47 07/10/23 14:54 07/10/23 15:30 Temperature 97 F L Temperature Source Temporal Pulse Rate 76 Pulse Rate [Lying] 71 Pulse Rate [Sitting (for 1 minute prior to obtaining)] 72 Pulse Rate [Standing (for 1 minute prior to obtaining)] 84 Respiratory Rate 16 Respiratory Effort Normal Respiratory Pattern Normal Blood Pressure 152/94 H Blood Pressure [Lying] 132/91 H Blood Pressure [Sitting (for 1 minute prior to obtaining)] 145/95 H Blood Pressure [Standing (for 1 minute prior to obtaining)] 137/99 H Blood Pressure Mean 113 Blood Pressure Mean [Lying] 104 Blood Pressure Mean [Sitting (for 1 minute prior to obtaining)] 111 Blood Pressure Mean [Standing (for 1 minute prior to obtaining)] 111 Pulse Ox 98 Oxygen Delivery Method Room Air 07/10/23 16:29 07/10/23 16:37 07/10/23 17:32 Temperature 98.1 F Temperature Source Pulse Rate 78 74 Pulse Rate [Lying] Pulse Rate [Sitting (for 1 minute prior to obtaining)] Pulse Rate [Standing (for 1 minute prior to obtaining)] Respiratory Rate 19 H 18 Respiratory Effort Normal Respiratory Pattern Normal Blood Pressure 143/93 H 141/98 H Blood Pressure [Lying] Blood Pressure [Sitting (for 1 minute prior to obtaining)] Blood Pressure [Standing (for 1 minute prior to obtaining)] Blood Pressure Mean 109 112 Blood Pressure Mean [Lying] Blood Pressure Mean [Sitting (for 1 minute prior to obtaining)] Blood Pressure Mean [Standing (for 1 minute prior to obtaining)] Pulse Ox 94 97 Oxygen Delivery Method Room Air Positive well nourished General Appearance ED: NAD; Negative for pallor HEENT Reports moist mucous membranes HEENT Narrative: Negative Eli-Hallpike on examination. Eyes PERRL and EOMs intact bilaterally Neck no lymphadenopathy Chest Wall inspection of chest normal Resp normal respiratory effort and clear to auscultation bilaterally Auscultation: Negative for rales, rhonchi or wheezes Cardio regular rate and regular rhythm GI normal to inspection, nondistended, normoactive bowel sounds Neuro oriented x3 Sensorium / Orientation: alert Motor Exam: strength 5/5 throughout Psych mental status grossly normal Skin no rashes or lesions noted General Skin Exam: Negative for jaundice or pallor MDM MDM MDM Narrative Medical decision making narrative: Patient presented with dizziness. Patient denies not have reproducible dizziness on examination. Started with some visual blurring today. He says about 6:15 AM. He has not had a return of this. NIH stroke scale score of 0. Differential includes TIA, vertigo, stroke, dehydration, anemia, electrolyte O'Guilherme, ACS. CBC was obtained to assess with blood cell count, hemoglobin, platelets. BMP to assess renal function, electrolytes, glucose. Liver enzymes to assess for liver impairment. Ammonia level to assess for hyperammonemia as the patient has a history of this. High-sensitivity troponin and EKG will be obtained to assess for ischemia/dysrhythmia. CBC shows normal evidence of 25.2. Hemoglobin 18.1. Platelets are low at 8 9. Coagulation studies are normal. Renal function electrolytes within normal limits. Total bilirubin elevated 2.6 and direct bilirubin 0.68 of undetermined significance. Patient does have a history of cirrhosis. Ultimately workup was unremarkable. CT brain was negative. Chest x-ray my interpretation shows no acute process. Radiologist interpretation agrees. EKG sinus rhythm at 71 bpm outside of ischemic change or ectopy on my interpretation. Concern for possible TIA this morning. Recommended admission. Patient was given aspirin 325 mg. Discussed with hospitalist. Impression: 1. TIA 2. dizziness 3. Blurry vision resolved Lab Data Attestation: I reviewed the patient's lab results. Labs: Laboratory Results - last 24 hr 07/10/23 07/10/23 15:08 15:31 WBC 5.2 RBC 6.04 Hgb 18.1 H* Hct 52.6 MCV 87.1 MCH 30.0 MCHC 34.4 RDW Std Deviation 41.5 RDW Coeff of Monster 13.1 Plt Count 89 L MPV 10.9 Immature Gran % (Auto) 0.400 Neut % (Auto) 81.3 H Lymph % (Auto) 9.7 L [place] % (Auto) 7.6 Eos % (Auto) 0.4 Baso % (Auto) 0.6 Absolute Neuts (auto) 4.2 Absolute Lymphs (auto) 0.50 L Nucleated RBC % 0 Differential Comment SCANNED Diff Path Review September foll PT 14.4 INR 1.1 Sodium 135 L Potassium 4.3 Chloride 100 Carbon Dioxide 28.0 Anion Gap 7 BUN 22 H Creatinine 1.12 Estim Creat Clear Calc 90.11 Est GFR (MDRD) Af Amer 86 Est GFR (MDRD) Non-Af 71 BUN/Creatinine Ratio 19.6 Glucose 147 H Calcium 9.6 Total Bilirubin 2.60 H Direct Bilirubin 0.68 H AST 17 ALT 33 Alkaline Phosphatase 110 Ammonia 18.0 Total Protein 7.8 Albumin 3.9 Globulin 3.9 Ethyl Alcohol < 3.0 Radiography Diagnostic Testing: Clinical Impression(s) from Imaging Studies Brain CT 07/10/23 15:19 IMPRESSION: No acute intracranial abnormality. Chronic involutional and ischemic changes of the brain. Electronically Signed: Gennaro Pacheco MD at 16:49 EST , Chest X-Ray 07/10/23 15:37 IMPRESSION: No acute radiographic abnormalities. Electronically Signed: Gennaro Pacheco MD at 16:50 EST , Discharge Plan Disposition Disposition: Acute Care Hospital [facility] Discharge Date/Time: 07/10/23 18:30
[2023-07-10] MEDS: Meclizine HCl 25 MG Tablet PO (15:29)
[2023-07-10 15:30] VITALS: BP 132/91; BP 137/99; BP 145/95; PULSE 71; PULSE 72; PULSE 84
[2023-07-10 15:34] LABS: Absolute Neutrophil Count 4.2 X10^3/uL (2.0-7.7); Basophil# 0.03 X10^3/uL; Basophil% 0.6 % (0-1); Eosinophil# 0.02 X10^3/uL; Eosinophils% 0.4 % (0-5); Hematocrit 52.6 % (40-54); Lymphocyte % 9.7 % (19-41); Mean Corp Hgb Conc 34.4 g/dL (32-36); Mean Corpuscular Volume 87.1 fL (80-94); Mean Platelet Vol. 10.9 fl (6.2-12.0); Monocyte# 0.39 X10^3/uL; Monocyte% 7.6 % (0-10); NRBC Flagged by Analyzer 0 % (0-5); Neutrophil # 4.19 X10^3/uL (2.7-7.7); Neutrophil % 81.3 % (47-70); POSITIVE COUNT YES; POSITIVE DIFFERENTIAL YES; Platelet Count 89 K/mm3 (150-450); RBC Distribution Width CV 13.1 % (11.6-14.6); RBC Distribution Width SD 41.5 fl (35.1-43.9); Red Blood Count 6.04 M/mm3 (4.6-6.2); White Blood Count 5.2 K/mm3 (4.4-11.0)
--- NOTE | 2023-07-10 15:37 | RAD_ITS ---
INDICATION: weakness EXAMINATION/TECHNIQUE: X-RAY - XR Chest 1 View COMPARISON: 03/27/2022. FINDINGS: The lungs are clear. Tortuous and calcified thoracic aorta. The heart is not enlarged. No pleural effusion or pneumothorax. Degenerative changes of the thoracic spine. RAD/Chest 1 View (Portable) IMPRESSION: No acute radiographic abnormalities. Electronically Signed: Gennaro Pacheco MD at 16:50 EST ,
[2023-07-10 15:38] LABS: Differential Indicated SCAN CRITERIA MET; Hemoglobin 18.1 g/dL (13.0-16.5)
[2023-07-10 15:48] LABS: AST(SGOT) 17 U/L (15-37); Alanine Aminotransfer ALT/SGPT 33 U/L (16-61); Albumin, Serum 3.9 g/dL (3.2-5.0); Alkaline Phosphatase 110 U/L (45-117); Anion Gap 7 (5-15); BUN 22 mg/dL (7-18); BUN/Creat Ratio 19.6 RATIO (10-20); Bilirubin, Direct 0.68 mg/dL (0.00-0.30); Calcium,Total 9.6 mg/dL (8.5-10.1); Chloride 100 mmol/L (98-107); Creatinine, Serum 1.12 mg/dL (0.70-1.30); EST Glomerular Filtration Rate 71 mL/min (>60); Est Glom Filt Rate - Afr Amer 86 mL/min (>60); Estimated Creatinine Clearance 90.11 ml/min; Globulin 3.9 g/dL (2.2-4.2); Glucose 147 mg/dL (74-106); Potassium 4.3 mmol/L (3.5-5.1); Protein, Total 7.8 g/dL (6.4-8.2); Sodium Level 135 mmol/L (136-145)
[2023-07-10 15:50] LABS: Differential Comment SCANNED
[2023-07-10] MEDS: 0.9% Normal Saline (1000mL) 1,000 ML 999 ML IV (16:25)
[2023-07-10 16:29] VITALS: BP 143/93; PULSE 78; RESP 19; O2SAT 94
[2023-07-10] MEDS: Aspirin 325 MG Tablet PO (17:30)
[2023-07-10 17:32] VITALS: BP 141/98; PULSE 74; RESP 18; TEMP 36.7; O2SAT 97
--- NOTE | 2023-07-10 17:44 | HP.PCM.HOS_ITS ---
HPI - General General Date of Admission: 07/10/23 Date of Service: 07/10/23 Chief Complaint: Room spinning and vision changes HPI Narrative LIZ RUSSO, is a 58-year-old male history of diabetes, hypertension, cirrhosis, GERD, hypothyroidism, alcohol use presented to [facility] ED 07/10/2023 for lightheadedness and dizziness. Was sitting on his couch this morning at 615 when he felt like the whole couch flipped over and felt like his vision was blurry for 5 to 10 seconds. When he stood up to move he felt diaphoretic but had no chest pain or shortness of breath and was not lightheaded or dizzy at that point but has had some intermittent lightheadedness throughout the day and no further visual changes. In the ED bilirubin 2.6 which is up slightly from usual 1.4 however everything else close to baseline, not h ypoglycemic, orthostats negative but given his visual blurring with lightheaded/dizzy feeling earlier this morning hospitalist contacted for TIA workup. Patient evaluated at bedside with family member present. He reports he was in his usual health but at 630 this morning he was laying on the couch in his trailer and felt like the whole trailer flipped and he also had some blurry vision and this all lasted maybe 5 to 10 seconds, he laid there for a while and then eventually stood up and he guesses he went out started a stroke and went back inside and when he went to leave he was feeling generally bad and sweating and weak and sat down for about 30 to 40 minutes. Had a little bit of nausea earlier as well and intermittently was still feeling lightheaded when he stood up to move around prompting him to come to the ED. Presently feeling much better with no acute complaints and since he has been up moving in ED symptoms of lightheadedness or room spinning not reproducible however given risk factors and symptoms earlier today patient brought in his TIA rule out. In chart patient has history of alcohol use, reports he drinks a couple times a week and denies daily drinking, denies substance use. [facility] Medical History Alcohol use Chewing tobacco nicotine dependence Diabetes High cholesterol History of stress test Hypertension Insulin dependent diabetes mellitus Thyroid disease Wears glasses Home Medications diltiazem HCl 180 mg capsule,extended release 24 hr 180 mg PO DAILY 01/27/22 [History Last Taken 03/22/23] dulaglutide 1.5 mg/0.5 mL subcutaneous pen injector 1.5 mg subcut QWEEK 01/27/22 [History Last Taken 07/09/23] empagliflozin 25 mg tablet 25 mg PO DAILY 01/27/22 [History Last Taken Unknown] insulin glargine U-300 conc 300 unit/mL (3 mL) subcutaneous pen (Toujeo Max U- 300 SoloStar) 60 unit subcut DAILY 01/27/22 [History Last Taken Unknown] levothyroxine 100 mcg capsule 200 mcg PO DAILY 01/27/22 [History Last Taken 03/22/23] metformin 500 mg tablet 1,000 mg PO BID 01/27/22 [History Last Taken Unknown] rosuvastatin 20 mg tablet 20 mg PO DAILY 01/27/22 [History Last Taken Unknown] aspirin 81 mg tablet,delayed release (Adult Low Dose Aspirin) 81 mg PO DAILY 03/19/23 [History Last Taken 03/21/23] irbesartan 300 mg-hydrochlorothiazide 12.5 mg tablet 1 tab PO DAILY 03/19/23 [History Last Taken Unknown] sildenafil 25 mg tablet 50 mg PO DAILY PRN erectile dysfunction 07/10/23 [History Last Taken Unknown] Allergy/AdvReac Type Severity Reaction Status Date / Time No Known Allergies Allergy Verified 07/10/23 14:50 Family History Mother Cancer breast Diabetes Hypertension CVA (cerebral vascular accident) Sister Hypertension Cancer breast Father Diabetes Heart disease Hypertension Surgical History History of liver biopsy Hx of hernia repair Social History Smoking Status: Current some day smoker tobacco type: smokeless tobacco ROS ROS Narrative General: Denies fever/chills HENT: Denies headache, denies stuffy nose, denies sore throat EYES: Had transient blurry vision Resp: Denies cough, denies shortness of breath Cardiac: Denies chest pain, no heart racing GI: Denies abdominal pain, denies changes in bowel, felt a little bit nauseous earlier today : Denies changes in urination Extremity: Denies swelling MSK: Denies weakness Neuro: Denies any numbness/tingling, earlier felt like world was spinning and is intermittently had some lightheadedness Heme: Denies any bleeding or bruising Skin: Denies rashes Psychiatric: No complaints voiced Vital Signs Vital Signs Vital Signs: 07/10/23 14:47 07/10/23 14:54 07/10/23 15:30 Temperature 97 F L Temperature Source Temporal Pulse Rate 76 Pulse Rate [Lying] 71 Pulse Rate [Sitting (for 1 minute prior to obtaining)] 72 Pulse Rate [Standing (for 1 minute prior to obtaining)] 84 Respiratory Rate 16 Respiratory Effort Normal Respiratory Pattern Normal Blood Pressure 152/94 H Blood Pressure [Lying] 132/91 H Blood Pressure [Sitting (for 1 minute prior to obtaining)] 145/95 H Blood Pressure [Standing (for 1 minute prior to obtaining)] 137/99 H Blood Pressure Mean 113 Blood Pressure Mean [Lying] 104 Blood Pressure Mean [Sitting (for 1 minute prior to obtaining)] 111 Blood Pressure Mean [Standing (for 1 minute prior to obtaining)] 111 Pulse Ox 98 Oxygen Delivery Method Room Air 07/10/23 16:29 07/10/23 16:37 07/10/23 17:32 Temperature 98.1 F Temperature Source Pulse Rate 78 74 Pulse Rate [Lying] Pulse Rate [Sitting (for 1 minute prior to obtaining)] Pulse Rate [Standing (for 1 minute prior to obtaining)] Respiratory Rate 19 H 18 Respiratory Effort Normal Respiratory Pattern Normal Blood Pressure 143/93 H 141/98 H Blood Pressure [Lying] Blood Pressure [Sitting (for 1 minute prior to obtaining)] Blood Pressure [Standing (for 1 minute prior to obtaining)] Blood Pressure Mean 109 112 Blood Pressure Mean [Lying] Blood Pressure Mean [Sitting (for 1 minute prior to obtaining)] Blood Pressure Mean [Standing (for 1 minute prior to obtaining)] Pulse Ox 94 97 Oxygen Delivery Method Room Air Weight Weight: 117.565 kg Body Mass Index (BMI) 37.1 Physical Exam Narrative General: Alert, oriented, no apparent distress HEENT: Atraumatic, normocephalic Eyes: Anicteric, normal conjunctiva, extraocular movements intact, pupils equal Neck: Supple Respiratory: Clear to auscultation bilaterally, normal respiratory effort Cardiovascular: Regular rate and rhythm GI: Soft, nontender, nondistended Extremities: No edema Musculoskeletal: Strength 5 out of 5 in right upper extremity, 5 out of 5 left upper extremity, 5 out of 5 right lower extremity, 5 out of 5 left lower extremity Neuro: No overt focal neurological deficits, cranial nerves II through XII intact, [id number] without significant difficulty bilaterally Skin: No rashes appreciated Psych: Cooperative Results Lab / Micro Data 07/10/23 15:08 07/10/23 15:08 Labs: Laboratory Results - last 24 hr 07/10/23 15:08: WBC 5.2, RBC 6.04, Hgb 18.1 H*, Hct 52.6, MCV 87.1, MCH 30.0, MCHC 34.4, RDW Std Deviation 41.5, RDW Coeff of Monster 13.1, Plt Count 89 L, MPV 10.9, Immature Gran % (Auto) 0.400, Neut % (Auto) 81.3 H, Lymph % (Auto) 9.7 L, [place] % (Auto) 7.6, Eos % (Auto) 0.4, Baso % (Auto) 0.6, Absolute Neuts (auto) 4.2, Absolute Lymphs (auto) 0.50 L, Nucleated RBC % 0, Differential Comment SCANNED, Diff Path Review September, Sodium 135 L, Potassium 4.3, Chloride 100, Carbon Dioxide 28.0, Anion Gap 7, BUN 22 H, Creatinine 1.12, Estim Creat Clear Calc 90.11, Est GFR (MDRD) Af Amer 86, Est GFR (MDRD) Non-Af 71, BUN/Creatinine Ratio 19.6, Glucose 147 H, Calcium 9.6, Total Bilirubin 2.60 H, Direct Bilirubin 0.68 H, AST 17, ALT 33, Alkaline Phosphatase 110, Total Protein 7.8, Albumin 3.9, Globulin 3.9 07/10/23 15:31: Ammonia 18.0 Micro: Microbiology 07/10/23 15:31 Mucosa - Nose SARS-CoV-2, Influenza & RSV (PCR) - Final Imaging Radiology Impression Brain CT 07/10/23 15:19 IMPRESSION: No acute intracranial abnormality. Chronic involutional and ischemic changes of the brain. Electronically Signed: Gennaro Pacheco MD at 16:49 EST , Chest X-Ray 07/10/23 15:37 IMPRESSION: No acute radiographic abnormalities. Electronically Signed: Gennaro Pacheco MD at 16:50 EST , Assessment & Plan Assessment/Plan (1) Visual changes: (2) Adult hypothyroidism: (3) Cirrhosis of liver: QUALIFIERS: Hepatic cirrhosis type: unspecified hepatic cirrhosis (4) Type 2 diabetes mellitus: (5) Thrombocytopenia: (6) Polycythemia: (7) Hypertension: PLAN: Plan #Visual changes and room spinning sensation- r/o TIA -Admit to tele -CT head w/ no acute changes -CTA head and neck ordered -MRI ordered -NIH q4hr -asa, statin -Echo w/ bubble study -PT/OT/Speech eval -Hold BP medications to allow for permissive hypertension for 24 hours unless SB P greater than 220 or DBP greater than 120 or until stroke is ruled out #Lightheadedness -Intermittent in nature -Admit to tele -Orthostats in ed negative -Not hypoglycemic -CT head with no acute changes -Will give gentle fluids -Will check TSH -Echo ordered as above -check ammonia -b12 level #HTN -Normotensive and orthostats negative, will continue diltiazem and irbesartan- hctz #Chronic cirrhosis -Seen on liver bx 01/30/23 -Follows w/ GI on outpt basis -Has slight elevation in bili of unclear significance, repeat in AM #Chronic thrombocytopenia -89 today, at baseline -Follows w/ Dr. Hernández #Chronic polycythemia -Chronically elevated, hgb 18.1 -Continue to monitor -may benefit from outpt sleep study if not already done #Type 2 diabetes mellitus -Glucose checks and sliding scale insulin -Hold home oral hypoglycemics #Hypothyroidism -Continue Synthroid -check tsh #DVT ppx: lovenox sub q Deborah Haque MD Time spent in the patient's overall evaluation,decision-making process, review of diagnostic data, adjustment of management, discussion with other providers, nursing nursing and ancillary staff involved in patient's care documentation, 60 Minutes Charges/Coding Visit Charges Inpatient E&M: 15010 Init Hosp L2
--- NOTE | 2023-07-10 17:56 | CT_ITS ---
STUDY: CTA HEAD AND NECK WITH CONTRAST REASON FOR EXAM: Male, 58 years old. Neuro deficit, acute, stroke suspected RADIATION DOSAGE (If Supplied By Facility): CTDIvol = ( 22.51 ) mGy, DLP = ( 858.01 ) mGycm TECHNIQUE: CT angiography was performed with a multi-detector CT scanner. Data acquisition was obtained from the skull base through the vertex following intravenous administration of IV 100mL Isovue-370. MIP images were reconstructed from the axial data set. Post-processing of the angiographic images was performed, with multiplanar reformation and 3D reconstruction. Individualized dose optimization techniques were used for this CT. COMPARISON: No relevant priors. FINDINGS: Normal bilateral petrous carotid arteries. There is calcified plaque formation of the right cavernous carotid artery, without a cross-sectional luminal stenosis. There is calcified plaque formation of the left cavernous carotid artery, without a cross-sectional luminal stenosis. Normal right A1 segments of the anterior cerebral artery. Normal left A1 segments of the anterior cerebral artery. Normal intact anterior communicating artery (ACOM). Normal bilateral A2 segments of the anterior cerebral arteries. Normal right M1 and M2 segments of the middle cerebral arteries, with a normal M1 bifurcation. Normal left M1 and M2 segments of the middle cerebral arteries, with a normal M1 bifurcation. Normal right posterior communicating artery (PCOM). Normal left posterior communicating artery (PCOM). Normal bilateral vertebral arteries. Normal basilar artery with a normal basilar bifurcation. The visualized bilateral superior cerebellar (SCA) arteries are normal. Normal bilateral P1, P2 and visualized P3 segments of the posterior cerebral arteries. There is no demonstrated aneurysm of the [place] of [place]. There is no demonstrated abnormality of the visualized brain. AORTIC ARCH: There is atherosclerotic calcific plaque formation of the aortic arch and great vessels arising from the aortic arch, without a hemodynamically significant stenosis. There is a normal origin of the brachiocephalic, left common carotid, and left subclavian arteries. RIGHT CAROTID ARTERIES: Normal right common carotid artery (CCA). There is mild atherosclerotic plaque formation with minimal narrowing of the right carotid bulb. There is mild atherosclerotic plaque formation of the origin of the right internal carotid artery with less than 50% cross sectional diameter stenosis. Normal visualized cervical portion of the right internal carotid artery. Normal origin of the right external carotid artery (ECA). LEFT CAROTID ARTERIES: Normal left common carotid artery (CCA). Normal left common carotid bulb. There is mild atherosclerotic plaque formation of the origin of the left internal carotid artery with less than 50% cross sectional diameter stenosis. Normal visualized cervical portion of the left internal carotid artery. Normal origin of the left external carotid artery (ECA). VERTEBRAL ARTERIES: Normal bilateral vertebral arteries. CT/CTA Head AND Neck W/ Contrast IMPRESSION: No intracranial aneurysm or large vessel occlusion. Atherosclerotic plaque with mild, less than 50%, narrowing of the internal carotid arteries. No hemodynamically significant internal carotid artery stenosis. N.B. : The above Results were Read Back by Rm Branham MD to Kodi Vogel DO, and understanding confirmed on 07/10/2023 18:41:34 (ET). Electronically Signed: Rm Branham MD at 18:42 EST ,
--- NOTE | 2023-07-10 17:56 | ECHOD_ITS ---
Reason For Study: TIA/CVA Procedure This was a 2D Doppler, Color Flow transthoracic echocardiogram. Exam performed portable in patient room. Left Ventricle Normal LV size. Left ventricular systolic function is normal. The estimated ejection fraction is 60 %. No regional wall motion abnormalities noted. Right Ventricle Normal RV size. Normal systolic function. Atria Normal left atrium. Normal right atrium. Bubble contrast study negative for right to left interatrial shunt. Mitral Valve Normal mitral valve. Tricuspid Valve Normal tricuspid valve. Aortic Valve Trisinus/trileaflet aortic valve. Mild focal aortic valve calcification. Pulmonic Valve Normal pulmonic valve. Great Vessels Mildly dilated aortic root. The pulmonary artery is normal size. Normal inferior vena cava. Pericardium/Pleural No pericardial effusion. Medication Performed a rapid injection of agitated mix of 9 cc saline and 1cc air to assess for atrial septal defect. MMode/2D Measurements & Calculations LVIDd: 4.8 cm IVSd: 1.3 cm Ao root diam: 4.4 cm LVIDs: 3.1 cm LVPWd: 1.1 cm RVDd: 2.6 cm FS: 36.2 % LAV(MOD-bp): 26.9 ml LVAd ap4: 25.7 cm2 SV(MOD-sp4): 45.4 ml LAV(MOD-bp) Indexed: 11.6 ml/m2 LVLd ap4: 7.7 cm LAV(MOD-sp2): 19.3 ml EDV(MOD-sp4): 71.9 ml LAV(MOD-sp4): 34.7 ml EDV(sp4-el): 72.8 ml LVAs ap4: 13.9 cm2 LVLs ap4: 6.0 cm ESV(MOD-sp4): 26.5 ml ESV(sp4-el): 27.2 ml EF(MOD-sp4): 63.2 % EF(sp4-el): 62.6 % SV(sp4-el): 45.6 ml LA A4 area: 14.3 cm2 LA dimension(2D): 4.3 cm RA A4 area: 13.5 cm2 TAPSE: 1.9 cm Time Measurements MV dec time: 0.29 sec Doppler Measurements & Calculations MV E max harris: 75.4 cm/sec Lat Peak E' Harris: 6.9 cm/sec Med Peak E' Harris: 4.6 cm/sec MV A max harris: 102.1 cm/sec E/E' lat: 11.0 E/E' med: 16.3 MV E/A: 0.74 MV dec slope: 256.9 cm/sec2 Ao V2 max: 123.8 cm/sec LV V1 max: 109.8 cm/sec Ao max P.1 mmHg LV V1 max P.8 mmHg Ao V2 mean: 83.9 cm/sec LV V1 mean P.5 mmHg Ao mean P.3 mmHg LV V1 mean: 72.4 cm/sec Ao V2 VTI: 26.7 cm LV V1 VTI: 25.2 cm AV (velocity ratio): 0.94 PA V2 max: 93.3 cm/sec TR max harris: 169.1 cm/sec TR max P.4 mmHg ECHO/Echo Complete Interpretation Summary Normal LV size. Left ventricular systolic function is normal. The estimated ejection fraction is 60 %. Bubble contrast study negative for right to left interatrial shunt. Ordering Physician: Deborah Haque Referring Physician: Danish Lowe Performed By: Benita Mederos, HARRY, RVT
--- NOTE | 2023-07-10 18:11 | ED.RN ---
1810: when going to draw blood work for a repeat ammonia level on the patient, I noticed his right bottom lip was protruded with brown coffee grounds on his chest. When asked if the patient was chewing tobacco at this time he responded, yes I figured it would help relax me . I asked the patient to spit it out and he was compliant. I provided education on the risk of nicotine with a suspected acute stroke/new neurological symptoms. He was asked what made him nervous/uncomfortable he responded with, being admitted is all new for me . He was reassured that admission would help with the dx and/or rule out of cause for neurological changes experienced earlier. He apologized for chewing at this time and states I know your not supposed to in the hospital, I just got caught . Provider Dr. Vogel notified of the incident.
[2023-07-10 18:25] LABS: Alcohol, Blood (Medical)-Serum < 3.0 mg/dL
[2023-07-10 18:27] LABS: International Normalized Ratio 1.1; Prothrombin Time (Protime)PT. 14.4 SECONDS (11.7-14.9)
[2023-07-10 18:50] VITALS: BMI 36.7
[2023-07-10 19:50] VITALS: BP 148/108; PULSE 77; RESP 18; TEMP 36.7; O2SAT 96
[2023-07-10] MEDS: 0.9% Normal Saline (1000mL) 1,000 ML 75 ML IV (20:05)
--- OUTSIDE RECORDS SUMMARY | 2023-07-10 20:52 | XMS RPT_ITS | CCD ---
Author Name Unknown Address [address] [place] [address] Organization [facility] Care Team Providers Care Life Coach Name Role Phone DANISH MENEZES DO Primary Care Physician [phone] Mynor BRIGHT MD, Michael Primary Care Provider [phone] Mynor BRIGHT DO, Michael A Primary Care Provider [phone] DANIHS MENEZES IV Primary Care Unavailable MEGHA PUENTE Attending Unavailabl e Medications Current Medications Medication Drug Class(es) Dates Sig (Normalized) Sig (Original) benoxinate hydrochloride 4 mg/ml / fluorescein sodium 2.5 mg/ml ophthalmic solution (1 source) Diagnostic Dye Start: 08-25-2021 End: 08-25-2021 fluorescein-benoxina te 0.25-0.4 % 1 Drop (FLURESS) DME [facility] (2 sources) Start: 04-05-2021 DME [facility] See Instructions, dx E11.65, test BGT 2x/day, dispense #200 contour test strips for 90 day supply, 3 refills, # 200 EA, 3 Refill(s), Pharmacy: [facility]/pharmacy #[id number], 176, cm, 04/05/21 7:59:00 EST, Height, 121.3, kg, 04/05/21 7:59:00 EST, Dosing Weight Start Date: 04/05/21 Status: Ordered Completed/Discontinued Medications Medication Drug Class(es) Dates Sig (Normalized) Sig (Original) 24 hr dilTIAZem hydrochloride 180 mg extended release oral capsule (2 sources) Calcium Channel Nestor Start: 04-13-2023 dilTIAZem CD (CARDIZEM CD, CARTIA XT) 180 mg 24 hr capsule Problems Problem Classification Problem Date Documented Da te Episodic/Chronic Blindness and vision defects (3 sources) Bilateral hyperopia of eyes; Translations: [Hypermetropia, bilateral] 04-16-2023 Episodic Cataract (1 source) Bilateral senile combined form cataracts of eyes; Translations: [Combined forms of age-related cataract, bilateral] 04-16-2023 Chronic Diabetes mellitus with complications (4 sources) Retinopathy due to diabetes mellitus; Translations: [Type II diabetes mellitus uncontrolled] 01-17-2021 Chronic Diabetes mellitus without complication (1 source) Insulin treated type 2 diabetes mellitus 02-21-2019 Chronic Disorders of lipid metabolism (1 source) Hyperlipidemia 02-21-2019 Chronic Essential hypertension (1 source) Hypertensive disorder 02-21-2019 Chronic Genitourinary symptoms and ill-defined conditions (1 source) Microalbuminuria 02-22-2019 Episodic Other connective tissue disease (1 source) Cramp in lower limb 02-21-2019 Episodic Other lower respiratory disease (1 source) Hypoxia 04-06-2019 Episodic Other male genital disorders (1 source) Impotence 02-21-2019 Chronic Other nutritional; endocrine; and metabolic disorders (1 source) Body mass index 30+ - obesity 04-05-2021 Chronic Other nutritional; endocrine; and metabolic disorders (1 source) Morbid obesity 02-21-2019 Chronic Other screening for suspected conditions (not mental disorders or infectious disease) (1 source) Viral screening status 04-05-2021 Episodic Residual codes; unclassified (1 source) Immunization due 04-05-2021 Episodic Thyroid disorders (1 source) Hypothyroidism 02-21-2019 Chronic Unclassified (1 source) Patient encounter status 04-05-2021 Results Test Name Value Interpretation Reference Range Facil ity Encounters Encounter Date Encounter Type Care Provider Facility Start: 04-16-2023 End: 04-16-2023 ambulatory DANISH MENEZES IV Facility:[facility] Start: 04-16-2023 End: 04-16-2023 Patient encounter procedure Megha Puente OD Work Phone: Optometry Procedures Date Procedure Procedure Detail Performing Clinician Start: 04-16-2023 Computerized ophthal pawel imaging retina Megha Puente OD Work Phone: Start: 08-25-2021 Computerized ophthal pawel imaging retina Ney Dunn MD, PhD Work Phone: Plan of Treatment Date Care Activity Detail Author Start: 04-06-2030 Urine microalbumin profile DTa P,Tdap,Td Vaccine (2 - Td or Tdap) [facility] Start: 04-16-2024 Hepatitis C antibody , confirmatory test Dilated Retinal Exam [facility] Start: 01-19-2023 Covid-19 Vaccine () Covid-19 Vaccine () [facility] Start: 01-19-2023 Influenza vaccination Influenza Vacc ine (#1) [facility] Start: 08-25-2022 Hepatitis C antibody , confirmatory test DILATED RETINAL EXAM [facility] Start: 05-21-2022 Depression Assessment Depression Ass essment [facility] Start: 04-03-2021 COVID-19 VACCINE (3 - Booster for Pfizer series) COVID-19 VACCINE (3 - Booster for Pfizer series) [facility] Start: 2018 PROSTATE CANCER SCRE ENING DISCUSSION PROSTATE CANCER SCREENING DISCUSSION [facility] Start: 2013 SHINGRIX VACCINE (1 of 2) SHINGRIX V ACCINE (1 of 2) [facility] Start: 2008 COLOGUARD (FIT-DNA) COLOGUARD (FIT-D NA) [facility] Start: 2008 Colonoscopy COLONOSCOPY [facility] Start: 2008 COLORECTAL CANCER SCREENING COLORECTAL CANCER SCREENING [facility] Start: [address] [facility] Start: 2008 FECAL OCCULT BLOOD FECAL OCCULT BLOO D [facility] Start: 2008 SIGMOIDOSCOPY SIGMOIDOSCOPY [facility] Start: 1982 Urine microalbumin profile DTAP,TDAP ,TD (1 - Tdap) [facility] Start: 1981 ANNUAL PCP TEAM PYROMETER MECHANIC LIAN DISEASE VISIT ANNUAL PCP TEAM CHRONIC DISEASE VISIT [facility] Start: 1981 Hepatitis B surface antibody level LDL CHOLESTEROL [facility] Start: 1981 HEPATITIS C SCREENING HEPATITIS C SC REENING [facility] Start: 1981 HIV SCREENING HIV SCREENING [facility] Start: 1979 ONE PNEUMOVAX PRIOR TO AGE 63 ONE PNEUMOVAX PRIOR TO AGE 63 [facility] Start: 1975 Adult depression scr eening assessment DEPRESSION SCREENING [facility] Start: 1973 3 comp foot exam completed DIABETIC FOOT EXAM [facility] Start: 1973 Hepatitis B screening URINE AL BUMIN:CREATININE RATIO [facility] Start: 1969 Pneumococcal vaccination Pneum ococcal Vaccine (1 - PCV) [facility] Start: 1968 Hemoglobin A1c/Hemoglobin.total in Blood HBA1C [facility] Immunizations Immunization Date Immunization Notes Care Provider Fa jim 03-08-2022 influenza virus vaccine, unspecified formulation Megha Puente OD Work Phone: [facility] 04-05-2021 influenza, injectabl e, quadrivalent, contains preservative; Translations: [Fluarix PF Quadrivalent ] DANISH MENEZES DO [facility] 11-01-2020 SARS-CoV-2 mRNA (tozinameran) vaccine DANISH MENEZES DO [facility] Payers Date Payer Category Payer Unknown [employer] PPO [id number] 2020-Present [phone] [address] [place] [address] PPO [id number] 2020 Unknown [employer] PPO [id number] 2020-Present [phone] [address] [place] [address] PPO [id number] 2020 Unknown [id number] Social History Date Type Detail Facility Start: 02-21-2019 Never smoked t obrory (finding) [facility] Sex Assigned At Male [facility] Start: 01-11-2021 Tobacco smoking stat us NHIS Ex-smoker [facility] Start: 01-11-2021 Tobacco use and exposure User of smokeless tobacco [facility] History of tobacco use Snuff User [facility] Start: 08-25-2021 End: 04-16-2023 Alcohol intake Current drinker of alcohol (finding) [facility] Start: 01-11-2021 History SDOH Alcohol Comment 4-5 beers a day [facility] Start: 1965 Sex Assigned At Not on file [facility] Start: 08-15-2021 End: 08-25-2021 Exposure to SARS-CoV-2 (event) Not sure [facility] History of tobacco use Current smoker [facility] Start: 08-25-2021 End: 04-16-2023 History of Social function [facility] Start: 08-25-2021 End: 04-16-2023 Tobacco use panel [facility] National Score (1-100), lower number is lower risk 72 [facility] Progress note 04-16-2023 Note Date & Type Note Facility 04-16-2023 Note HNO ID: [id number] Author: Megha Puente OD Service: ? Author Type: PERSON INVESTIGATOR Type: Progress Notes Filed: 04/16/2023 12:15 PM Note Text: ASSESSMENT/PLAN: 1. 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 Menezes. 2. Combined form of senile cataract of both eyes - ICD9: 366.19, ICD10: H25.813 Mild cataract in both eyes. Well tolerated at this time. Discussed possible future affect on daily activities to watch for. Monitor as instructed. 3. Hyperopia, bilateral - ICD9: 367.0, ICD10: H52.03 4. Regular astigmatism, bilateral - ICD9: 367.21, ICD10: H52.223 5. Presbyopia - ICD9: 367.4, ICD10: H52.4 Suggested updating his glasses as desired. Recommended yearly dilated exams. Megha Puente, OD I have confirmed and edited as necessary the relevant ophthalmic history, ROS, and the neuro exam findings as obtained by others. I have seen and examined this patient. [facility]23 Patient Instructions Note Date & Type Note Facility 04-16-2023 Instructions Megha Puente, OD - 04/16/2023 12:14 PM EST ASSESSMENT/PLAN: 1. 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 Menezes. 2. Combined form of senile cataract of both eyes - ICD9: 366.19, ICD10: H25.813 Mild cataract in both eyes. Well tolerated at this time. Discussed possible future affect on daily activities to watch for. Monitor as instructed. 3. Hyperopia, bilateral - ICD9: 367.0, ICD10: H52.03 4. Regular astigmatism, bilateral - ICD9: 367.21, ICD10: H52.223 5. Presbyopia - ICD9: 367.4, ICD10: H52.4 Suggested updating his glasses as desired. Recommended yearly dilated exams. documented in this encounter [facility] History of Present illness Narrative 04-16-2023 Megha Puente, OD - 04/16/2023 12:04 PM EST Note Date & Type Note Facility 04-16-2023 History of Presen t illness Narrative ASSESSMENT/PLAN: 1. 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 Menezes. 2. Combined form of senile cataract of both eyes - ICD9: 366.19, ICD10: H25.813 Mild cataract in both eyes. Well tolerated at this time. Discussed possible future affect on daily activities to watch for. Monitor as instructed. 3. Hyperopia, bilateral - ICD9: 367.0, ICD10: H52.03 4. Regular astigmatism, bilateral - ICD9: 367.21, ICD10: H52.223 5. Presbyopia - ICD9: 367.4, ICD10: H52.4 Suggested updating his glasses as desired. Recommended yearly dilated exams. Megha Puente, OD I have confirmed and edited as necessary the relevant ophthalmic history, ROS, and the neuro exam findings as obtained by others. I have seen and examined this patient. documented in this encounter [facility] History of Present illness Narrative 08-25-2021 Ney Dunn MD, PhD - 08/25/2021 9:11 AM EDT Note Date & Type Note Facility 08-25-2021 History of Presen t illness Narrative Referred by Dr. Puente 1. Diabetes mellitus with moderate/severe nonproliferative diabetic retinopathy right eye and severe nonproliferative diabetic retinopathy left eye -intraretinal microvascular abnormalities left eye -not yet proliferative but close Long discussion about blood pressure/bg control 2. not visually significant cataracts both eyes Plan: Ok to monitor with Dr. Puente Return to me if proliferative or if edema develops I have confirmed and edited as necessary the relevant ophthalmic history, ROS, and the neuro exam findings as obtained by others. I have seen and examined this patient. I have discussed the case and the management of this patient's care with the Resident/Fellow, if applicable. I also have reviewed and agree with the assessment and plan as stated above and agree with all of its relevant components. Ney Dunn MD documented in this encounter [facility] Evaluation + Plan note Laboratory Note Date & Type Note Facility Evaluation + Plan note Future Appointments Appointment Date:07/19/2021 08:00:00 AM Scheduled Provider:DANISH MENEZES DO Location:[facility] Appointment Type:PC OV Follow Up Future Scheduled TestsMicroalbumin Level Urine 04/05/21 [facility] Evaluation note Note Date & Type Note Facility documented in this encounter [facility] Evaluation note Note Date & Type Note Facility documented in this encounter [facility] Hospital course Narrative Note Date & Type Note Facility Hospital course Narrative No data available for this section [facility] Discharge instructions Note Date & Type Note Facility Hospital Discharge instructions No data available for this section [facility] Summary Purpose Family History No Family History Records FoundNo Family History Records Found Advance Directives No Advanced Directives Records FoundNo Advanced Directives Records Found Medications Administered Section Inactive Administered Medications - up to 3 most recent administrations Medication Order MAR Action Action Date Dose Rate Site PHENYLephrine 2.5 % 1 Drop (AK-DILATE, ROBER-SYNEPHRINE) 1 Drop, BOTH EYES, ONCE, 1 dose, On Sun04/16/23 at 1200, FOR OPHTHALMIC USE ONLY PROTECT FROM LIGHT Given 04/16/2023 12:00 PM EST 1 Drop tropicamide 1 % 1 Drop (MYDRIACYL) 1 Drop, BOTH EYES, ONCE, 1 dose, On Sun04/16/23 at 1200, FOR THE EYE Given 04/16/2023 12:00 PM EST 1 Drop Additional Source Comments Source Comments (unrecognize d section and content) In the event this informatio n is protected by the Federal Confidentiality of Alcohol and Drug Abuse Patient Records regulations: The Federal rules restrict any use of the information to criminally investigate or prosecute any alcohol or drug abuse patient.[facility] the event this information is protected by the Federal Confidentiality of Alcohol and Drug Abuse Patient Records regulations: The Federal rules restrict any use of the information to criminally investigate or prosecute any alcohol or drug abuse patient.[facility] Reason for Visit (unrecogniz ed section and content) Specialty Diagnoses / Procedures Referred By Contact Referred To Contact Ophthalmology / OPHTHALMOLOGY Diagnoses Type 2 diabetes mellitus with moderate nonproliferative diabetic retinopathy without macular edema, bilateral DIABETIC RETINOPATHY OU Procedures OFFICE/OUTPATIENT NEW MODERATE MDM 45-59 MINUTES NEW ADULT Ginna Puenteabby Greer II, OD [address] [place] [address] Ney Dunn MD, PhD [address] [place] [address] Referral ID Status Reason Start Date Expiration Date Visits Re quested Visits Authorized [id number] Closed 08/25/2021 06/30/2022 1 1 Reason Comments Diabetes Cataract Evaluation Specialty Diagnoses / Procedures Referred By Contact Referred To Contact Optometry / OPHTHALMOLOGY Diagnoses Type 2 diabetes mellitus with moderate nonproliferative diabetic retinopathy without macular edema, bilateral Diabetic Eye exam [facility] Procedures NEW ADULT Self Ryanesbetzy Irvin, OD [address] [place] [address] Referral ID Status Reason Start Date Expiration Date Visits Re quested Visits Authorized [id number] Closed 04/16/2023 07/15/2023 1 1 Care Teams (unrecognized sec tion and content) Life Coach Relationship Specialty Start Date End Date Danish Menezes IV, DO [address] [place] [address] [id number] PCP - General Family Medicine 12/29/20 (unrecognized sect ion and content) No Status Records FoundNo Status Records Found INFORMATION SOURCE (unrecogn ized section and content) DATE CREATED AUTHOR AUTHOR'S ORGANIZ ATION 04/17/2023 [facility] FOR RECORDS PERTAINING TO PATIENTS WHO ARE OR HAVE BEEN ENROLLED IN A CHEMICAL DEPENDENCY/SUBSTANCEABUSE PROGRAM, SOME INFORMATION MAY BE OMITTED. This clinical summary was aggregated from multiple sources. Caution should be exercised in using it in the provision of clinical care. This summary normalizes information from multiple sources, and as a consequence, information in this document may materially change the coding, format and clinical context of patient data. In addition, data may be omitted in some cases. CLINICAL DECISIONS SHOULD BE BASED ON THE PRIMARY CLINICAL RECORDS. [facility]. provides no warranty or guarantee of the accuracy or completeness of information in this document.
--- OUTSIDE RECORDS SUMMARY | 2023-07-10 21:16 | XMS RPT_ITS | CCD ---
Author Name Unknown Address [address] [place] [address] Organization [facility] Care Team Providers Care Overseer [employer] Name Role Phone DANISH MENEZES DO Primary Care Physician [phone] Mynor BRIGHT MD, Michael Primary Care Provider [phone] Mynor BRIGHT DO, Michael A Primary Care Provider [phone] DANISH MENEZSE IV Primary Care Unavailable MEGHA PUENTE Attending [...] refills, # 200 EA, 3 Refill(s), Pharmacy: [facility]/pharmacy #[id number], 176, cm, 04/05/21 7:59:00 EST, Height, 121.3, [...] 04-16-2023 End: 04-16-2023 ambulatory DANISH MENEZES IV Facility:[facility] Start: 04-16-2023 End: 04-16-2023 Patient encounter [...] P,Tdap,Td Vaccine (2 - Td or Tdap) [facility] Start: 04-16-2024 Hepatitis C antibody , confirmatory test Dilated Retinal Exam [facility] Start: 01-19-2023 Covid-19 Vaccine () Covid-19 Vaccine () [facility] Start: 01-19-2023 Influenza vaccination Influenza Vacc ine (#1) [facility] Start: 08-25-2022 Hepatitis C antibody , confirmatory test DILATED RETINAL EXAM [facility] Start: 05-21-2022 Depression Assessment Depression Ass essment [facility] Start: 04-03-2021 COVID-19 VACCINE (3 - Booster for Pfizer series) COVID-19 VACCINE (3 - Booster for Pfizer series) [facility] Start: 2018 PROSTATE CANCER SCRE ENING DISCUSSION PROSTATE CANCER SCREENING DISCUSSION [facility] Start: 2013 SHINGRIX VACCINE (1 of 2) SHINGRIX V ACCINE (1 of 2) [facility] Start: 2008 COLOGUARD (FIT-DNA) COLOGUARD (FIT-D NA) [facility] Start: 2008 Colonoscopy COLONOSCOPY [facility] Start: 2008 COLORECTAL CANCER SCREENING COLORECTAL CANCER SCREENING [facility] Start: [address] COLONOGRAPHY [facility] Start: 2008 FECAL OCCULT BLOOD FECAL OCCULT BLOO D [facility] Start: 2008 SIGMOIDOSCOPY SIGMOIDOSCOPY [facility] Start: 1982 Urine microalbumin profile DTAP,TDAP ,TD (1 - Tdap) [facility] Start: 1981 ANNUAL PCP TEAM ASIAN STUDIES PROGRAM CHAIR LIAN DISEASE VISIT ANNUAL PCP TEAM CHRONIC DISEASE VISIT [facility] Start: 1981 Hepatitis B surface antibody level LDL CHOLESTEROL [facility] Start: 1981 HEPATITIS C SCREENING HEPATITIS C SC REENING [facility] Start: 1981 HIV SCREENING HIV SCREENING [facility] Start: 1979 ONE PNEUMOVAX PRIOR TO AGE 65 ONE PNEUMOVAX PRIOR TO AGE 65 [facility] Start: 1975 Adult depression scr eening assessment DEPRESSION SCREENING [facility] Start: 1973 3 comp foot exam completed DIABETIC FOOT EXAM [facility] Start: 1973 Hepatitis B screening URINE AL BUMIN:CREATININE RATIO [facility] Start: 1969 Pneumococcal vaccination Pneum ococcal Vaccine (1 - PCV) [facility] Start: 1968 Hemoglobin A1c/Hemoglobin.total in Blood HBA1C [facility] Immunizations Immunization Date Immunization Notes Care Provider Fa jim 03-08-2022 influenza virus vaccine, unspecified formulation Megha Puente OD Work Phone: [facility] 04-05-2021 influenza, injectabl e, quadrivalent, contains preservative; Translations: [Fluarix PF Quadrivalent ] DANISH MENEZES DO [facility] 11-01-2020 SARS-CoV-2 mRNA (tozinameran) vaccine DANISH MENEZES DO [facility] Payers Date Payer Category Payer Unknown [employer] PPO [id number] 2020-Present [phone] [address] [place] [address] PPO [id number] 2020 Unknown [employer] PPO [id number] 2020-Present [phone] [address] [place] [address] PPO [id number] 2020 Unknown [id number] Social History Date Type Detail Facility Start: 02-21-2019 Never smoked t obrory (finding) [facility] Sex Assigned At Male [facility] Start: 01-11-2021 Tobacco smoking stat us NHIS Ex-smoker [facility] Start: 01-11-2021 Tobacco use and exposure User of smokeless tobacco [facility] History of tobacco use Snuff User [facility] Start: 08-25-2021 End: 04-16-2023 Alcohol intake Current drinker of alcohol (finding) [facility] Start: 01-11-2021 History SDOH Alcohol Comment 4-5 beers a day [facility] Start: 1965 Sex Assigned At Not on file C [facility] Start: 08-15-2021 End: 08-25-2021 Exposure to SARS-CoV-2 (event) Not sure [facility] History of tobacco use Current smoker [facility] Start: 08-25-2021 End: 04-16-2023 History of Social function [facility] Start: 08-25-2021 End: 04-16-2023 Tobacco use panel [facility] National Score (1-100), lower number is lower risk 72 [facility] Progress note 04-16-2023 Note Date & Type Note Facility 04-16-2023 Note HNO ID: [id number] Author: Megha Puente OD Service: ? Author Type: DEVELOPMENTAL WRITING INSTRUCTOR Type: Progress Notes Filed: 04/16/2023 12:15 PM [...] I have [facility] examined [facility]. [facility] Inst[facility] 04-16-2023 Patient Instructions Note Date & [...] yearly dilated exams. documented in this encounter [facility] History of Present illness Narrative 04-16-2023 Megha [...] examined this patient. documented in this encounter [facility] History of Present illness Narrative 08-25-2021 Ney [...] Ney Dunn MD documented in this encounter [facility] Evaluation + Plan note Laboratory Note Date & Type Note Facility Evaluation + Plan note Future Appointments Appointment Date:07/19/2021 08:00:00 AM Scheduled Provider:DANISH MENEZES DO Location:[facility] Appointment Type:PC OV Follow Up Future Scheduled TestsMicroalbumin Level Urine 04/05/21 [facility] Evaluation note Note Date & Type Note Facility documented in this encounter [facility] Evaluation note Note Date & Type Note Facility documented in this encounter [facility] Hospital course Narrative Note Date & Type Note Facility Hospital course Narrative No data available for this section [facility] Hospital Discharge instructions Note Date & Type Note Facility Hospital Discharge instructions No data available for this section [facility] Summary Purpose Family History No Family History [...] or prosecute any alcohol or drug abuse patient.[facility] the event this information is protected by the Federal Confidentiality of Alcohol and Drug Abuse Patient Records regulations: The Federal rules restrict any use of the information to criminally investigate or prosecute any alcohol or drug abuse patient.[facility] Reason for Visit (unrecogniz ed section and content) Specialty Diagnoses / Procedures Referred By Contact Referred To Contact Ophthalmology / OPHTHALMOLOGY Diagnoses Type 2 diabetes mellitus with moderate nonproliferative diabetic retinopathy without macular edema, bilateral DIABETIC RETINOPATHY OU Procedures OFFICE/OUTPATIENT NEW MODERATE MDM 45-59 MINUTES NEW ADULT Ginna Puenteabby Greer II, OD [address] [place] [address] Ney Dunn MD, PhD [address] [place] [address] Referral ID Status Reason Start Date Expiration Date Visits Re quested Visits Authorized [id number] Closed 08/25/2021 06/30/2022 1 1 Reason Comments Diabetes Cataract Evaluation Specialty Diagnoses / Procedures Referred By Contact Referred To Contact Optometry / OPHTHALMOLOGY Diagnoses Type 2 diabetes mellitus with moderate nonproliferative diabetic retinopathy without macular edema, bilateral Diabetic Eye exam [facility] Procedures NEW ADULT Self Ryanesbetzy Irvin, OD [address] [place] [address] Referral ID Status Reason Start Date Expiration Date Visits Re quested Visits Authorized [id number] Closed 04/16/2023 07/15/2023 1 1 Care Teams (unrecognized sec tion and content) [employer]er [employer] Relationship Specialty Start Date End Date Danish Menezes IV, DO [address] [place] [id number] PCP - General Family Medicine 12/29/20 (unrecognized sect ion and content) No Status Records FoundNo Status Records Found INFORMATION SOURCE (unrecogn ized section and content) DATE CREATED AUTHOR AUTHOR'S ORGANIZ ATION 04/17/2023 [facility] FOR RECORDS PERTAINING TO PATIENTS WHO ARE [...] BE BASED ON THE PRIMARY CLINICAL RECORDS. [facility]. provides no warranty or guarantee of the accuracy or completeness of information in this document.
[2023-07-10] MEDS: Atorvastatin Calcium 80 MG Tablet PO (22:27)
[2023-07-10 22:46] LABS: Bedside Glucose 135 mg/dL (74-106)
[2023-07-10 23:50] VITALS: BP 138/95; PULSE 78; RESP 16; TEMP 36.7; O2SAT 95
[2023-07-11 00:19] VITALS: O2SAT 95
[2023-07-11 03:50] VITALS: BP 130/92; PULSE 61; RESP 16; TEMP 36.7; O2SAT 95
[2023-07-11] MEDS: Levothyroxine 100 MCG Tablet 200 MCG PO (04:55)
[2023-07-11 05:00] VITALS: BMI 36.7
[2023-07-11 06:45] LABS: Bedside Glucose 128 mg/dL (74-106)
[2023-07-11 07:06] LABS: Absolute Lymphocyte Count 0.63 X10^3/uL (0.83-4.51); Absolute Neutrophil Count 3.7 X10^3/uL (2.0-7.7); Basophil# 0.03 X10^3/uL; Basophil% 0.6 % (0-1); Eosinophil# 0.19 X10^3/uL; Eosinophils% 3.7 % (0-5); Hematocrit 47.6 % (40-54); Hemoglobin 16.4 g/dL (13.0-16.5); Lymphocyte # 0.63 X10^3/ul (0.83-4.51); Lymphocyte % 12.3 % (19-41); Mean Corp Hgb Conc 34.5 g/dL (32-36); Mean Corpuscular Hgb 30.4 pg (27.0-32.0); Mean Corpuscular Volume 88.3 fL (80-94); Mean Platelet Vol. 11.1 fl (6.2-12.0); Monocyte# 0.58 X10^3/uL; Monocyte% 11.3 % (0-10); NRBC Flagged by Analyzer 0 % (0-5); Neutrophil # 3.68 X10^3/uL (2.7-7.7); Neutrophil % 71.7 % (47-70); POSITIVE COUNT YES; Platelet Count 78 K/mm3 (150-450); RBC Distribution Width CV 13.2 % (11.6-14.6); RBC Distribution Width SD 42.7 fl (35.1-43.9); Red Blood Count 5.39 M/mm3 (4.6-6.2); White Blood Count 5.1 K/mm3 (4.4-11.0)
[2023-07-11 07:48] LABS: AST(SGOT) 15 U/L (15-37); Alanine Aminotransfer ALT/SGPT 26 U/L (16-61); Albumin, Serum 3.4 g/dL (3.2-5.0); Alkaline Phosphatase 91 U/L (45-117); Anion Gap 3 (5-15); BUN 20 mg/dL (7-18); BUN/Creat Ratio 19.2 RATIO (10-20); Calcium,Total 8.9 mg/dL (8.5-10.1); Chloride 107 mmol/L (98-107); Cholesterol 80 mg/dL (200); Creatinine, Serum 1.04 mg/dL (0.70-1.30); EST Glomerular Filtration Rate 77 mL/min (>60); Est Glom Filt Rate - Afr Amer 94 mL/min (>60); Estimated Creatinine Clearance 96.41 ml/min; Globulin 3.5 g/dL (2.2-4.2); Glucose 127 mg/dL (74-106); High Density Lipoprotein 33 mg/dL; Magnesium 2.2 mg/dL (1.6-2.6); Protein, Total 6.9 g/dL (6.4-8.2); Sodium Level 138 mmol/L (136-145); Thyroid Stim Hormone (TSH) 0.01 uIU/mL (0.358-3.74); Triglycerides 108 mg/dL; Very Low Density Lipoprotein 22 mg/dL (5-40)
[2023-07-11 07:50] VITALS: BP 152/99; PULSE 76; RESP 17; TEMP 36.8; O2SAT 95
[2023-07-11 08:35] LABS: Vitamin B12 200 pg/mL (211-911)
[2023-07-11] MEDS: LORazepam 1 MG Tablet PO (08:56)
--- NOTE | 2023-07-11 09:00 | MRI_ITS ---
HISTORY: TIA r/o. TECHNIQUE: Multiplanar and multisequence MR images of the brain were obtained without contrast. 281 images. COMPARISON: CT prior day. FINDINGS: BRAIN PARENCHYMA: Mild foci of increased T2 FLAIR signal in the bilateral cerebral white matter. No abnormal focus of restricted diffusion. No acute intracranial hemorrhage identified. CSF SPACES: Mild generalized volume loss. No significant midline shift or other mass effect.No extra-axial fluid collection. VASCULAR SYSTEM: Major intracranial flow voids are maintained. PARANASAL SINUSES AND MASTOID AIR CELLS: Small left maxillary sinus mucous retention cyst. ORBITS: Symmetric contents. MRI/Brain without Contrast IMPRESSION: No evidence for acute infarct. Mild chronic involutional and white matter changes. Electronically Signed: Edith Blackburn MD at 9:55 EST ,
[2023-07-11] MEDS: hydroCHLOROthiazide 12.5mg 12.5 MG PO (10:17)
[2023-07-11] MEDS: dilTIAZem CD 180 MG Capsule PO (10:17)
[2023-07-11] MEDS: Aspirin 81 MG TAB.CHEW PO (10:17)
[2023-07-11] MEDS: Insulin Glargine-YFGN 100 UNIT/ML Pen 50 UNIT SC (10:17)
[2023-07-11] MEDS: 0.9% Normal Saline (1000mL) 1,000 ML 75 ML IV (10:17)
[2023-07-11] MEDS: Losartan Potassium 100 MG Tablet PO (10:19)
[2023-07-11] MEDS: Insulin Lispro 100 UNIT/ML INSULN.PEN SC (11:11)
[2023-07-11 11:38] LABS: Bedside Glucose 179 mg/dL (74-106)
[2023-07-11 12:34] LABS: Pathologist Review Reviewed
--- NOTE | 2023-07-11 13:04 | CON.PCM.NE_ITS ---
Assessment and Plan: Neuro Assessment/Plan LIZ RUSSO is a 58 M with a past medical history of DM2, HTN, cirrhosis, hypothyroidism, being evaluated by Teleneurology for dizziness, llightheadedness and intermittent blurred vision. Symptoms not clearly focal or consistent with cerebrovascular disease. His CTA is unremarkable and MRI Brain without diffusion restriction. Exam non-focal. Ddx includes other causes for presyncope includin arrythmias, possible vasovagal component. On history, really no clear focality that would typically come with cerebrovascular event, although cannot rule out TIA, would eval other avenues for his symptoms. Plan: - recommend 30 day holter monitor - cont home ASA 81mg - replace Vit B12 - 1000mcg daily for 1 month Followup with Neurology outpatient if symptoms persist I personally attended this patient and spent a total time of 45 minutes evaluating this patient including clinical assessment, review of chart, medical history imaging, and determining appropriate treatment and workup. HPI Consult Data Date of Consult: 07/11/23 HPI Narrative HPI Narrative: LIZ RUSSO, is a 58-year-old male history of diabetes, hypertension, cir rhosis, GERD, hypothyroidism, alcohol use presented to [facility] ED 07/10/2023 for lightheadedness and dizziness. Was sitting on his couch this morning at 615 when he felt like the whole couch flipped over and felt like his vision was blurry for 5 to 10 seconds. When he stood up to move he felt diaphoretic but had no chest pain or shortness of breath and was not lightheaded or dizzy at that point but has had some intermittent lightheadedness throughout the day and no further visual changes. In the ED bilirubin 2.6 which is up slightly from usual 1.4 however everything else close to baseline, not hypoglycemic, orthostats negative but given his visual blurring with lighthead ed/dizzy feeling earlier this morning hospitalist contacted for TIA workup. Patient evaluated at bedside with family member present. He reports he was in his usual health but at 630 this morning he was laying on the couch in his trailer and felt like the whole trailer flipped and he also had some blurry vision and this all lasted maybe 5 to 10 seconds, he laid there for a while and then eventually stood up and he guesses he went out started a stroke and went back inside and when he went to leave he was feeling generally bad and sweating and weak and sat down for about 30 to 40 minutes. Had a little bit of nausea earlier as well and intermittently was still feeling lightheaded when he stood up to move around prompting him to come to the ED. Presently feeling much better with no acute complaints and since he has been up moving in ED symptoms of lightheadedness or room spinning not reproducible however given risk factors and symptoms earlier today patient brought in his TIA rule out. In chart patient has history of alcohol use, reports he drinks a couple times a week and denies daily drinking, denies substance use. Neurologic History Pt was laying on the couch when symptoms started, felt like dysequilibrium. Lay there a while and felt better. Then when first stood up and was ok, while packing lunch, started getting really hot and sweaty, was really lightheaded. Not weaker or number one side than another. Symptoms started at 6AM and was noon, 1pm when he started feeling better. [place] nauseated and vomitting. Did not have a headache. Vision would get blurry intermittently, would last a couple minutes and improved after. Nothing like this happened before, never had a stroke before. No new medis in the last 2 weeks. No changes in diet. Currently feels back to normal. [facility] Medical History (Updated 07/10/23 @ 18:56 by Rosemary Lopez) Alcohol use Chewing tobacco nicotine dependence Diabetes High cholesterol History of stress test Hypertension Hypothyroidism Insulin dependent diabetes mellitus Smoker Thyroid disease Wears glasses Home Medications diltiazem HCl 180 mg capsule,extended release 24 hr 180 mg PO DAILY 01/27/22 [History Last Taken 03/22/23] dulaglutide 1.5 mg/0.5 mL subcutaneous pen injector 1.5 mg subcut QWEEK 01/27/22 [History Last Taken 07/09/23] empagliflozin 25 mg tablet 25 mg PO DAILY 01/27/22 [History Last Taken Unknown] insulin glargine U-300 conc 300 unit/mL (3 mL) subcutaneous pen (Toujeo Max U- 300 SoloStar) 60 unit subcut DAILY 01/27/22 [History Last Taken Unknown] levothyroxine 100 mcg capsule 200 mcg PO DAILY 01/27/22 [History Last Taken 03/22/23] metformin 500 mg tablet 1,000 mg PO BID 01/27/22 [History Last Taken Unknown] rosuvastatin 20 mg tablet 20 mg PO DAILY 01/27/22 [History Last Taken Unknown] aspirin 81 mg tablet,delayed release (Adult Low Dose Aspirin) 81 mg PO DAILY 03/19/23 [History Last Taken 03/21/23] irbesartan 300 mg-hydrochlorothiazide 12.5 mg tablet 1 tab PO DAILY 03/19/23 [History Last Taken Unknown] sildenafil 25 mg tablet 50 mg PO DAILY PRN erectile dysfunction 07/10/23 [History Last Taken Unknown] vitamin B12 1,000 mcg-folic acid 400 mcg sublingual lozenge 1 alice sublingual DAILY #30 ea 07/11/23 [Rx Last Taken Unknown] Allergy/AdvReac Type Severity Reaction Status Date / Time No Known Allergies Allergy Verified 07/10/23 14:50 Family History Mother Cancer breast Diabetes Hypertension CVA (cerebral vascular accident) Sister Hypertension Cancer breast Father Diabetes Heart disease Hypertension Surgical History History of liver biopsy Hx of hernia repair Social History Smoking Status: Current every day smoker tobacco type: smokeless tobacco Vital Signs Vital Signs Vital Signs: 07/10/23 14:47 07/10/23 14:54 07/10/23 15:30 Temperature 97 F L Temperature Source Temporal Pulse Rate 76 Pulse Rate [Lying] 71 Pulse Rate [Sitting (for 1 minute prior to obtaining)] 72 Pulse Rate [Standing (for 1 minute prior to obtaining)] 84 Respiratory Rate 16 Respiratory Effort Normal Respiratory Depth Respiratory Pattern Normal Blood Pressure 152/94 H Blood Pressure [Lying] 132/91 H Blood Pressure [Sitting (for 1 minute prior to obtaining)] 145/95 H Blood Pressure [Standing (for 1 minute prior to obtaining)] 137/99 H Blood Pressure Mean 113 Blood Pressure Mean [Lying] 104 Blood Pressure Mean [Sitting (for 1 minute prior to obtaining)] 111 Blood Pressure Mean [Standing (for 1 minute prior to obtaining)] 111 Blood Pressure Source Blood Pressure Position Blood Pressure Location Pulse Ox 98 Oxygen Delivery Method Room Air 07/10/23 16:29 07/10/23 16:37 07/10/23 17:32 Temperature 98.1 F Temperature Source Pulse Rate 78 74 Pulse Rate [Lying] Pulse Rate [Sitting (for 1 minute prior to obtaining)] Pulse Rate [Standing (for 1 minute prior to obtaining)] Respiratory Rate 19 H 18 Respiratory Effort Normal Respiratory Depth Respiratory Pattern Normal Blood Pressure 143/93 H 141/98 H Blood Pressure [Lying] Blood Pressure [Sitting (for 1 minute prior to obtaining)] Blood Pressure [Standing (for 1 minute prior to obtaining)] Blood Pressure Mean 109 112 Blood Pressure Mean [Lying] Blood Pressure Mean [Sitting (for 1 minute prior to obtaining)] Blood Pressure Mean [Standing (for 1 minute prior to obtaining)] Blood Pressure Source Blood Pressure Position Blood Pressure Location Pulse Ox 94 97 Oxygen Delivery Method Room Air 07/10/23 19:50 07/10/23 22:00 07/10/23 23:50 Temperature 98.1 F 98.1 F Temperature Source Oral Oral Pulse Rate 77 78 Pulse Rate [Lying] Pulse Rate [Sitting (for 1 minute prior to obtaining)] Pulse Rate [Standing (for 1 minute prior to obtaining)] Respiratory Rate 18 16 Respiratory Effort Normal Non-Labored Respiratory Depth Normal Respiratory Pattern Normal Blood Pressure 148/108 H 138/95 H Blood Pressure [Lying] Blood Pressure [Sitting (for 1 minute prior to obtaining)] Blood Pressure [Standing (for 1 minute prior to obtaining)] Blood Pressure Mean 121 109 Blood Pressure Mean [Lying] Blood Pressure Mean [Sitting (for 1 minute prior to obtaining)] Blood Pressure Mean [Standing (for 1 minute prior to obtaining)] Blood Pressure Source Monitor Monitor Blood Pressure Position Sitting Semi-Fowlers Blood Pressure Location Left Arm Left Arm Pulse Ox 96 95 Oxygen Delivery Method Room Air Room Air Room Air 07/11/23 03:50 07/11/23 00:19 07/11/23 03:55 Temperature 98.1 F Temperature Source Oral Pulse Rate 61 Pulse Rate [Lying] Pulse Rate [Sitting (for 1 minute prior to obtaining)] Pulse Rate [Standing (for 1 minute prior to obtaining)] Respiratory Rate 16 Respiratory Effort Normal Non-Labored Respiratory Depth Normal Respiratory Pattern Normal Blood Pressure 130/92 H Blood Pressure [Lying] Blood Pressure [Sitting (for 1 minute prior to obtaining)] Blood Pressure [Standing (for 1 minute prior to obtaining)] Blood Pressure Mean 104 Blood Pressure Mean [Lying] Blood Pressure Mean [Sitting (for 1 minute prior to obtaining)] Blood Pressure Mean [Standing (for 1 minute prior to obtaining)] Blood Pressure Source Monitor Blood Pressure Position Supine Blood Pressure Location Left Arm Pulse Ox 95 95 Oxygen Delivery Method Room Air Room Air Room Air 07/11/23 07:53 07/11/23 07:50 07/11/23 10:00 Temperature 98.2 F Temperature Source Oral Pulse Rate 76 Pulse Rate [Lying] Pulse Rate [Sitting (for 1 minute prior to obtaining)] Pulse Rate [Standing (for 1 minute prior to obtaining)] Respiratory Rate 17 Respiratory Effort Normal Respiratory Depth Respiratory Pattern Blood Pressure 152/99 H Blood Pressure [Lying] Blood Pressure [Sitting (for 1 minute prior to obtaining)] Blood Pressure [Standing (for 1 minute prior to obtaining)] Blood Pressure Mean 116 Blood Pressure Mean [Lying] Blood Pressure Mean [Sitting (for 1 minute prior to obtaining)] Blood Pressure Mean [Standing (for 1 minute prior to obtaining)] Blood Pressure Source Monitor Blood Pressure Position Blood Pressure Location Pulse Ox 95 Oxygen Delivery Method Room Air Room Air Room Air Weight Weight: 116.1 kg Body Mass Index (BMI) 36.7 EEG Results Procedure Details EEG Procedure Details: LIZ RUSSO is a 58 year old M with a past medical history of , who p resents for evaluation of Electroencephalogram on DATE at TIME NIHSS NIHSS Nursing Documentation NIHSS Nursing Documentation: NIH Stroke Scale Start: 07/10/23 15:52 Freq: Status: Discharge Protocol: Activity Type Activity Date Activity User E-sign Co-sign Detail Recorded Client Recorded Date Recorded By Document 07/10/23 15:52 JS Desktop 07/10/23 15:53 JS 07/10/23 15:52 NIH Stroke Scale [NIHSS] A score of 0 is normal or asymptomatic . Total possible score is 42. Inpatient: RN or Physician to activate a stroke alert for onset of new stroke symptoms or with NIHSS increase >/= 3 points. Following change in neurological status, NIHSS will be performed per physician order or more frequently PRN. -1a. Level of Consciousness Alert; keenly responsive -1b. LOC Questions Answers BOTH questions correctly. -1c. LOC Commands Performs both tasks correctly . -2. Best Gaze Normal -3. Visual No visual loss -4. Facial Palsy Normal symmetrical movements -5a. Left Arm No drift; arm holds 90 (or 45 ) degrees for full 10 seconds -5b. Right Arm No drift; arm holds 90 (or 45 ) degrees for full 10 seconds -6a. Left Leg No drift; leg holds 30-degree position for full 5 seconds -6b. Right Leg No drift; leg holds 30-degree position for full 5 seconds -7. Limb Ataxia Absent -8. Sensory Normal; no sensory loss -9. Best Language No aphasia; normal -10. Dysarthria Normal -11. Extinction and Inattention No abnormality -Total 0 Query Text:A score of 0 is normal or asymptomatic. Total possible score is 42 . ED: Notify Physician for NIHSS increase by > / = 3 points. Inpatient: RN or Physician to activate a stroke alert for NIHSS increase of > / = 3 points. NIHSS: Ischemic Stroke/TIA Start: 07/10/23 18:52 Text: For PCU Patients: NIH and Neuro Check every 4 Status: Complete hours and PRN Freq: [id number] Protocol: Activity Type Activity Date Activity User E-sign Co-sign Detail Recorded Client Recorded Date Recorded By Document 07/11/23 08:00 W[place] Desktop 07/11/23 09:00 W[place] 07/11/23 08:00 -1a. Level of Consciousness Alert; keenly responsive -1b. LOC Questions Answers BOTH questions correctly. -1c. LOC Commands Performs both tasks correctly . -2. Best Gaze Normal -3. Visual No visual loss -4. Facial Palsy Normal symmetrical movements -5a. Left Arm No drift; arm holds 90 (or 45 ) degrees for full 10 seconds -5b. Right Arm No drift; arm holds 90 (or 45 ) degrees for full 10 seconds -6a. Left Leg No drift; leg holds 30-degree position for full 5 seconds -6b. Right Leg No drift; leg holds 30-degree position for full 5 seconds -7. Limb Ataxia Absent -8. Sensory Normal; no sensory loss -9. Best Language No aphasia; normal -10. Dysarthria Normal -11. Extinction and Inattention No abnormality -Total 0 Query Text:A score of 0 is normal or asymptomatic. Total possible score is 42 . ED: Notify Physician for NIHSS increase by > / = 3 points. Inpatient: RN or Physician to activate a stroke alert for NIHSS increase of > / = 3 points. Coma Scale [Assess] -Eye Opening Spontaneous -Motor Obeys Commands -Verbal Oriented [Total] -Coma Scale Total 15 Physical Exam Narrative -? General: Laying comfortably in bed; in no acute distress. -? HENT: Normal oropharynx and mucosa. Normal external appearance of ears and nose. Exophthalmos. -? Neck: Supple, no pain or tenderness -? CV:? No peripheral edema. -? Pulmonary:? Normal respiratory effort. -? Ext: No cyanosis, edema, or deformity -? Skin: No rash. Normal palpation of skin.? -? Musculoskeletal: full range of motion; no joint tenderness. Normal digits and nails by inspection. No clubbing. -? NEURO: -? Mental Status: The patient was alert and oriented to time, place, and person. Normal recent/remote memory, concentration, and [facility]. -? Language: speech is clear.? Naming, repetition, fluency, and comprehension intact. -? Cranial Nerves: PERRL 3 mm/brisk. EOMI, visual landa full, no facial asymmetry, facial sensation intact, hearing intact, -? Motor: Detailed strength exam as performed by the nurse/MARIANA and witnessed by the physician: R L SA 5 5 EE 5 5 EF 5 5 WE WF Video Editing Intern 5 5 HF 5 5 KE 4 4 KF 5 5 DF 5 5 PF 5 5 -? Tone: is normal and bulk is normal -? Sensation- Intact to light touch bilaterally -? Coordination: No dysmetria on [id number], finger follow finger or [id number]. -? Gait- Gait initiation was normal. Narrow base with good heel strike and stride length was observed during ambulation. Turns were in stride. Patient was able to walk normally in tandem. [place] was normal. Lab / Micro Data 07/11/23 06:35 07/11/23 06:35 Labs: Laboratory Results - last 24 hr 07/10/23 15:08: WBC 5.2, RBC 6.04, Hgb 18.1 H*, Hct 52.6, MCV 87.1, MCH 30.0, MCHC 34.4, RDW Std Deviation 41.5, RDW Coeff of Monster 13.1, Plt Count 89 L, MPV 10.9, Immature Gran % (Auto) 0.400, Neut % (Auto) 81.3 H, Lymph % (Auto) 9.7 L, [place] % (Auto) 7.6, Eos % (Auto) 0.4, Baso % (Auto) 0.6, Absolute Neuts (auto) 4.2, Absolute Lymphs (auto) 0.50 L, Nucleated RBC % 0, Differential Comment SCANNED, Diff Path Review Reviewed, PT 14.4, INR 1.1, Sodium 135 L, Potassium 4.3, Chloride 100, Carbon Dioxide 28.0, Anion Gap 7, BUN 22 H, Creatinine 1.12, Estim Creat Clear Calc 90.11, Est GFR (MDRD) Af Amer 86, Est GFR (MDRD) Non-Af 71, BUN/Creatinine Ratio 19.6, Glucose 147 H, Calcium 9.6, Total Bilirubin 2.60 H, Direct Bilirubin 0.68 H, AST 17, ALT 33, Alkaline Phosphatase 110, Total Protein 7.8, Albumin 3.9, Globulin 3.9, Ethyl Alcohol < 3.0 07/10/23 15:31: Ammonia 18.0 07/10/23 18:15: Ammonia 16.0 07/10/23 22:26: POC Glucose 135 H 07/11/23 06:22: POC Glucose 128 H 07/11/23 06:35: WBC 5.1, RBC 5.39, Hgb 16.4, Hct 47.6, MCV 88.3, MCH 30.4, MCHC 34.5, RDW Std Deviation 42.7, RDW Coeff of Monster 13.2, Plt Count 78 L, MPV 11.1, Immature Gran % (Auto) 0.400, Neut % (Auto) 71.7 H, Lymph % (Auto) 12.3 L, [place] % (Auto) 11.3 H, Eos % (Auto) 3.7, Baso % (Auto) 0.6, Absolute Neuts (auto) 3.7, Absolute Lymphs (auto) 0.63 L, Nucleated RBC % 0, Sodium 138, Potassium 4.0, Chloride 107, Carbon Dioxide 28.0, Anion Gap 3 L, BUN 20 H, Creatinine 1.04, Estim Creat Clear Calc 96.41, Est GFR (MDRD) Af Amer 94, Est GFR (MDRD) Non-Af 77, BUN/Creatinine Ratio 19.2, Glucose 127 H, Calcium 8.9, Magnesium 2.2, Total Bilirubin 2.10 H, AST 15, ALT 26, Alkaline Phosphatase 91, Total Protein 6.9, Albumin 3.4, Globulin 3.5, Albumin/Globulin Ratio 1.0, Triglycerides 108, Cholesterol 80, LDL Cholesterol 25, VLDL Cholesterol 22, HDL Cholesterol 33 L, Vitamin B12 200 L, TSH 0.01 L 07/11/23 11:08: POC Glucose 179 H Micro: Microbiology 07/10/23 15:31 Mucosa - Nose SARS-CoV-2, Influenza & RSV (PCR) - Final Imaging Radiology Impression Brain CT 07/10/23 15:19 IMPRESSION: No acute intracranial abnormality. Chronic involutional and ischemic changes of the brain. Electronically Signed: Gennaro Pacheco MD at 16:49 EST , Chest X-Ray 07/10/23 15:37 IMPRESSION: No acute radiographic abnormalities. Electronically Signed: Gennaro Pacheco MD at 16:50 EST , Echocardiogram 07/10/23 17:56 Interpretation Summary Normal LV size. Left ventricular systolic function is normal. The estimated ejection fraction is 60 %. Bubble contrast study negative for right to left interatrial shunt. Ordering Physician: Deborah Haque Referring Physician: Danish Lowe Performed By: Benita Mederos, HARRY, RVT Head/Neck CTA 07/10/23 17:56 IMPRESSION: No intracranial aneurysm or large vessel occlusion. Atherosclerotic plaque with mild, less than 50%, narrowing of the internal carotid arteries. No hemodynamically significant internal carotid artery stenosis. N.B. : The above Results were Read Back by Rm Branham MD to Kodi Vogel DO, and understanding confirmed on 07/10/2023 18:41:34 (ET). Electronically Signed: Rm Branham MD at 18:42 EST , ADDENDUM: 07/10/23 1849 IMPRESSION: No intracranial aneurysm or large vessel occlusion. Atherosclerotic plaque with mild, less than 50%, narrowing of the internal carotid arteries. No hemodynamically significant internal carotid artery stenosis. N.B. : The above Results were Read Back by Rm Branham MD to Kodi Vogel DO, and understanding confirmed on 07/10/2023 18:41:34 (ET). Electronically Signed: Rm Branham MD at 18:42 EST , Brain MRI 07/11/23 09:00 IMPRESSION: No evidence for acute infarct. Mild chronic involutional and white matter changes. Electronically Signed: Edith Blackburn MD at 9:55 EST , Active Medications Active Medications Active Medications: Current Medications Generic Name Dose Route Start Last Admin Trade Name Freq PRN Reason Stop Dose Admin Acetaminophen 650 mg 07/10/23 18:52 Acetaminophen 325 Mg Tablet PO Q6H PRN PRN Pain 1-10 Or Fever >100.7 Albuterol Sulfate 2.5 mg 07/10/23 18:52 Albuterol 2.5 Mg/3 Ml Vial.Neb. INHALATION Q2H PRN PRN SOB/Wheezing Aspirin 81 mg 07/11/23 08:00 07/11/23 10:17 Aspirin 81 Mg Tab.Chew PO 81 mg BREAKFAST PAPI Administration Atorvastatin Calcium 80 mg 07/10/23 22:00 07/10/23 22:27 Atorvastatin Calcium 80 Mg Tablet PO 80 mg QHS PAPI Administration Dextrose 0 gm 07/10/23 18:52 Dextrose 50%-Water 25 Gm/50 Ml Disp.Syrin IV X1 PRN HYPOGLYCEMIA Protocol Diltiazem HCl 180 mg 07/11/23 10:00 07/11/23 10:17 Diltiazem Cd 180 Mg Capsule PO 180 mg DAILY PAPI Administration Protocol Glucagon 1 mg 07/10/23 18:52 Glucagon 1 Mg/Ml Syringe IM X1 PRN HYPOGLYCEMIA Hydralazine HCl 5 mg 07/10/23 18:52 Hydralazine 20 Mg/Ml Vial IV Q30M PRN to maintain BP goals Hydrochlorothiazide 12.5 mg 07/11/23 10:00 07/11/23 10:17 Hydrochlorothiazide 12.5mg PO 12.5 mg DAILY PPAI Administration Sodium Chloride 250 mls @ 15 mls/hr 07/10/23 18:46 IV .[id number] PRN Additional IVPB Infusion Sodium Chloride 250 mls @ 15 mls/hr 07/10/23 18:46 IV .[id number] PRN Saline Flush Sodium Chloride 1,000 mls @ 75 mls/hr 07/10/23 18:52 07/11/23 10:17 IV 07/11/23 14:51 75 mls/hr .[id number] PAPI Administration Insulin Glargine 50 unit 07/11/23 10:00 07/11/23 10:17 Insulin Glargine-Yfgn 100 Unit/Ml Pen SC 50 unit DAILY PAPI Administration Insulin Human Lispro 0 unit 07/10/23 22:00 07/11/23 11:11 Insulin Lispro 100 Unit/Ml Insuln.Pen SC 1 u ACHS PAPI Administration Protocol Iopamidol 0 ml 07/10/23 18:52 07/10/23 23:20 Contrast Allergy Safety Check IV Not Given X1 [facility] Labetalol HCl 10 - 20 mg 07/10/23 18:52 Labetalol (Prefilled) 20 Mg/4 Ml IV Q10M PRN PRN to Maintain BP Goals Levothyroxine Sodium 200 mcg 07/11/23 06:00 07/11/23 04:55 Levothyroxine 100 Mcg Tablet PO 200 mcg DAILY@0600 PAPI Administration Lorazepam 1 mg 07/11/23 07:49 07/11/23 08:56 Lorazepam 1 Mg Tablet PO 07/11/23 18:00 1 mg PRN PRN Administration MRI Losartan Potassium 100 mg 07/11/23 10:00 07/11/23 10:19 Losartan Potassium 100 Mg Tablet PO 100 mg DAILY [facility] Administration Melatonin 3 mg 07/10/23 18:52 Melatonin 3 Mg Tablet PO QHS PRN PRN INSOMNIA Nicotine Polacrilex 2 mg 07/10/23 19:53 Nicotine Polacrilex 2 Mg Gum PO Q2H PRN PRN nicotine craving Ondansetron HCl 4 mg 07/10/23 18:52 Ondansetron 4 Mg/2 Ml Vial IV Q8H PRN PRN NAUSEA/VOMITING Oxycodone HCl 2.5 - 5 mg 07/10/23 18:52 Oxycodone 5 Mg Tablet PO Q4H PRN PRN Pain Score 4-10 Senna/Docusate Sodium 2 tablet 07/10/23 18:52 Senna/Docusate Sodium 1 Tablet PO BID PRN PRN Constipation Sodium Chloride 10 - 40 ml 07/10/23 18:46 0.9% Saline Lock 10 Ml Syringe IV UD PRN SALINE FLUSH
--- NOTE | 2023-07-11 13:58 | DS.PCM_ITS ---
Providers Date of Admission: 07/10/23 Date of Discharge: 07/11/23 Primary Care Physician: Dr. Danish Lowe, DO Consultations 07/10/23 18:52 Consult: Tele-Neurology Routine Consulting Provider: [facility] Reason for Consult: TIA r/o, visual changes, room spinning EMERGENT Consult: No MD Notified: Yes Date Notified: 07/10/23 Time Notified: 22:14 Method of Notification: Answering Service Comments:: dr flores Nursing Unit Staff Notify [facility] of Tele-Neurology Consult: Yes Reason For Visit: TIA R/O Diagnosis Discharge Diagnosis (1) Visual changes: Status: Acute Code(s): H53.9 - Unspecified visual disturbance (2) Adult hypothyroidism: Status: Acute Code(s): E03.9 - Hypothyroidism, unspecified (3) Cirrhosis of liver: Status: Chronic Code(s): K74.60 - Unspecified cirrhosis of liver Qualifiers: Hepatic cirrhosis type: unspecified hepatic cirrhosis (4) Type 2 diabetes mellitus: Status: Acute Code(s): E11.9 - Type 2 diabetes mellitus without complications (5) Thrombocytopenia: Status: Chronic Code(s): D69.6 - Thrombocytopenia, unspecified (6) Polycythemia: Status: Chronic Code(s): D75.1 - Secondary polycythemia (7) Hypertension: Status: Chronic Code(s): I10 - Essential (primary) hypertension Medications at Discharge Home Medications diltiazem HCl 180 mg capsule,extended release 24 hr 180 mg PO DAILY 01/27/22 dulaglutide 1.5 mg/0.5 mL subcutaneous pen injector 1.5 mg subcut QWEEK 01/27/22 empagliflozin 25 mg tablet 25 mg PO DAILY 01/27/22 insulin glargine U-300 conc 300 unit/mL (3 mL) subcutaneous pen (Toujeo Max U- 300 SoloStar) 60 unit subcut DAILY 01/27/22 levothyroxine 100 mcg capsule 200 mcg PO DAILY 01/27/22 metformin 500 mg tablet 1,000 mg PO BID 01/27/22 rosuvastatin 20 mg tablet 20 mg PO DAILY 01/27/22 aspirin 81 mg tablet,delayed release (Adult Low Dose Aspirin) 81 mg PO DAILY 03/19/23 irbesartan 300 mg-hydrochlorothiazide 12.5 mg tablet 1 tab PO DAILY 03/19/23 sildenafil 25 mg tablet 50 mg PO DAILY PRN erectile dysfunction 07/10/23 vitamin B12 1,000 mcg-folic acid 400 mcg sublingual lozenge 1 alice sublingual DAILY #30 ea 07/11/23 Hospital Course Operations None Procedures 2-D Echocardiogram Summary of Care Provided Minutes Spent on Discharge: 45 Hospital Course: Patient is a 58-year-old male with a past medical history as outlined was admitted through the ED on 07/10/2023 with a complaint of lightheadedness and dizziness. He was sitting on discharge on the morning of admission and felt very dizzy and his vision was blurry. He felt like the whole culture flipped over. He also had assisted diaphoresis. He subsequently had intermittent lightheadedness during the day. He therefore came into the ED because he was concerned about a stroke. On admission CT of the brain was negative for any acute intracranial pathology. CT of the head and neck also showed no acute hemodynamically significant obstruction. He had MRI of the brain which showed no evidence of a stroke. Neurology reviewed patient and did not think that this was a stroke. However his vitamin B12 level was noted to be low so he was started on vitamin B12 1000 mcg daily. Per neurology recommendation was also discharged with an order for 30-day event monitor. He remained stable and was discharged home on 07/11/2023. 2D echo done showed EF of 60% with normal left ventricular systolic function and negative bubble study. Patient seen and examined. He had no active complaints and had an uneventful night. His symptoms had not recurred. Review of systems otherwise negative. Labs and vitals reviewed. Home medication reviewed and reconciled. Physical Exam Const alert, oriented x3 and no apparent distress General Appearance: cooperative and comfortable Orientation / Consciousness: awake HEENT normocephalic, head/scalp atraumatic, hearing grossly normal bilaterally and moist oral mucous membranes Mouth: oral and palatal mucosa normal Eyes PERRL, EOMs intact bilaterally and conjunctivae normal Neck no lymphadenopathy and supple Resp normal respiratory effort, no retractions, no use of accessory muscles and clear to auscultation bilaterally Cardio regular rate, regular rhythm, S1 normal heart sound, S2 normal heart sound and no murmurs GI normal to inspection, nondistended, normoactive bowel sounds, soft to palpation, non-tender and non-distended Extremity normal to inspection, full ROM and no clubbing, cyanosis or edema Skin no rashes or lesions noted Neuro oriented x3, CN's II-XII intact bilaterally, moves all extremities and no focal motor deficits Sensorium / Orientation: awake Motor Exam: strength 5/5 throughout Psych affect normal Weight / BMI Weight Weight: 255 lb 15.307 oz Body Mass Index (BMI) 36.7 ABG / Lab / Microbiology Data 07/11/23 06:35 07/11/23 06:35 Laboratory: Laboratory Results - last 24 hr 07/10/23 15:08: WBC 5.2, RBC 6.04, Hgb 18.1 H*, Hct 52.6, MCV 87.1, MCH 30.0, MCHC 34.4, RDW Std Deviation 41.5, RDW Coeff of Monster 13.1, Plt Count 89 L, MPV 10.9, Immature Gran % (Auto) 0.400, Neut % (Auto) 81.3 H, Lymph % (Auto) 9.7 L, [place] % (Auto) 7.6, Eos % (Auto) 0.4, Baso % (Auto) 0.6, Absolute Neuts (auto) 4.2, Absolute Lymphs (auto) 0.50 L, Nucleated RBC % 0, Differential Comment SCANNED, Diff Path Review Reviewed, PT 14.4, INR 1.1, Sodium 135 L, Potassium 4.3, Chloride 100, Carbon Dioxide 28.0, Anion Gap 7, BUN 22 H, Creatinine 1.12, Estim Creat Clear Calc 90.11, Est GFR (MDRD) Af Amer 86, Est GFR (MDRD) Non-Af 71, BUN/Creatinine Ratio 19.6, Glucose 147 H, Calcium 9.6, Total Bilirubin 2.60 H, Direct Bilirubin 0.68 H, AST 17, ALT 33, Alkaline Phosphatase 110, Total Protein 7.8, Albumin 3.9, Globulin 3.9, Ethyl Alcohol < 3.0 07/10/23 15:31: Ammonia 18.0 07/10/23 18:15: Ammonia 16.0 07/10/23 22:26: POC Glucose 135 H 07/11/23 06:22: POC Glucose 128 H 07/11/23 06:35: WBC 5.1, RBC 5.39, Hgb 16.4, Hct 47.6, MCV 88.3, MCH 30.4, MCHC 34.5, RDW Std Deviation 42.7, RDW Coeff of Monster 13.2, Plt Count 78 L, MPV 11.1, Immature Gran % (Auto) 0.400, Neut % (Auto) 71.7 H, Lymph % (Auto) 12.3 L, [place] % (Auto) 11.3 H, Eos % (Auto) 3.7, Baso % (Auto) 0.6, Absolute Neuts (auto) 3.7, Absolute Lymphs (auto) 0.63 L, Nucleated RBC % 0, Sodium 138, Potassium 4.0, Chloride 107, Carbon Dioxide 28.0, Anion Gap 3 L, BUN 20 H, Creatinine 1.04, Estim Creat Clear Calc 96.41, Est GFR (MDRD) Af Amer 94, Est GFR (MDRD) Non-Af 77, BUN/Creatinine Ratio 19.2, Glucose 127 H, Calcium 8.9, Magnesium 2.2, Total Bilirubin 2.10 H, AST 15, ALT 26, Alkaline Phosphatase 91, Total Protein 6.9, Albumin 3.4, Globulin 3.5, Albumin/Globulin Ratio 1.0, Triglycerides 108, Cholesterol 80, LDL Cholesterol 25, VLDL Cholesterol 22, HDL Cholesterol 33 L, Vitamin B12 200 L, TSH 0.01 L 07/11/23 11:08: POC Glucose 179 H Microbiology: Microbiology 07/10/23 15:31 Mucosa - Nose SARS-CoV-2, Influenza & RSV (PCR) - Final Radiography Diagnostic Testing: Radiology Impression Brain CT 07/10/23 15:19 IMPRESSION: No acute intracranial abnormality. Chronic involutional and ischemic changes of the brain. Electronically Signed: Gennaro Pacheco MD at 16:49 EST , Chest X-Ray 07/10/23 15:37 IMPRESSION: No acute radiographic abnormalities. Electronically Signed: Gennaro Pacheco MD at 16:50 EST , Echocardiogram 07/10/23 17:56 Interpretation Summary Normal LV size. Left ventricular systolic function is normal. The estimated ejection fraction is 60 %. Bubble contrast study negative for right to left interatrial shunt. Ordering Physician: Deborah Haque Referring Physician: Danish Lowe Performed By: Benita Mederos, RDCS, RVT Head/Neck CTA 07/10/23 17:56 IMPRESSION: No intracranial aneurysm or large vessel occlusion. Atherosclerotic plaque with mild, less than 50%, narrowing of the internal carotid arteries. No hemodynamically significant internal carotid artery stenosis. N.B. : The above Results were Read Back by Rm Branham MD to Kodi Vogel DO, and understanding confirmed on 07/10/2023 18:41:34 (ET). Electronically Signed: Rm Branham MD at 18:42 EST , ADDENDUM: 07/10/23 1849 IMPRESSION: No intracranial aneurysm or large vessel occlusion. Atherosclerotic plaque with mild, less than 50%, narrowing of the internal carotid arteries. No hemodynamically significant internal carotid artery stenosis. N.B. : The above Results were Read Back by Rm Branham MD to Kodi Vogel DO, and understanding confirmed on 07/10/2023 18:41:34 (ET). Electronically Signed: Rm Branham MD at 18:42 EST , Brain MRI 07/11/23 09:00 IMPRESSION: No evidence for acute infarct. Mild chronic involutional and white matter changes. Electronically Signed: Edith Blackburn MD at 9:55 EST , D/C Instructions Discharge Diet: Low fat / Low cholesterol Discharge Activity: Return to Normal Activity Weight Bearing Status: Weight bearing as tolerated Call your doctor if you observe: Fever of 101 or Higher, Shortness of breath, Swelling in the ankles, Chest pain and Increased palpitations (irregular heartbeat) Meaningful Use Info Meaningful Use Diagnoses (Choose all that apply): None applicable Discharge Plan Admission Admit Date/Time: 07/10/23 17:44 Primary Reason for Your Visit: dizziness Attending Provider: Martha Collins Primary Care Provider: Danish Lowe Consulting Providers: Mikhail Stanley; Nany Jaimes; Mell Espinoza; Lexi Miller; Sally Flores; Pato Rodarte; Jumana Kumar; Isreal Salinas; Naeem Wilhelm; Khalida Aguilera; Abimael Ayala; Britt Gregg; Pili Mathur; Fausto Villarreal; Cornelius Roberto; Vikas Magana; Aníbal Warren; Bailey Tilley; Russell Varela; Deborah Haque Instructions Patient Instructions: Dizziness Fainting Ch Discharge Orders/Prescriptions Prescriptions: New vitamin Q49-hpdtw acid 1,000-400 mcg lozenge 1 alice sublingual DAILY Qty: 30 0RF Continued diltiazem HCl 180 mg capsule,extended release 24hr 180 mg PO DAILY dulaglutide 1.5 mg/0.5 mL pen injector 1.5 mg subcut QWEEK Patient Comments: takes on empagliflozin 25 mg tablet 25 mg PO DAILY insulin glargine U-300 conc [Toujeo Max U-300 SoloStar] 300 unit/mL (3 mL) insulin pen 60 unit subcut DAILY levothyroxine 100 mcg capsule 200 mcg PO DAILY metformin 500 mg tablet 1,000 mg PO BID rosuvastatin 20 mg tablet 20 mg PO DAILY irbesartan-hydrochlorothiazide 300-12.5 mg tablet 1 tab PO DAILY Patient Comments: TAKE 1 TABLET BY MOUTH EVERY DAY aspirin [Adult Low Dose Aspirin] 81 mg tablet,delayed release (DR/EC) 81 mg PO DAILY Patient Comments: has not been taking for awhile sildenafil 25 mg tablet 50 mg PO DAILY PRN (Reason: erectile dysfunction) Patient Comments: TAKE 2 TABLETS BY MOUTH 1 HOUR PRIOR TO SEXUAL ACTIVITY Other Ambulatory Orders: 30 Day Event Recorder Preventi (Urgent) Timeframe: 1 Day Facility: [facility] - Location: Cardiovascular Services Ordered By: Dr. Martha Collins Referrals / Follow Up: Danish Lowe DO [Primary Care Provider] - Within 2 Weeks Disposition Disposition (needs filled in before D/C Order can be placed): Home, Self Care Charges/Coding Visit Charges Inpatient E&M: 85497 Disch Hosp >30min
--- NOTE | 2023-07-11 14:23 | PHA.DC_ITS ---
Pharmacy [place] Med Reconciliation Pharmacy Service has performed discharge medication reconciliation for this patient. The patient's discharge medication list was reviewed for discrepancies and discrepancies were resolved. Medications at Discharge Home Medications diltiazem HCl 180 mg capsule,extended release 24 hr 180 mg PO DAILY 01/27/22 dulaglutide 1.5 mg/0.5 mL subcutaneous pen injector 1.5 mg subcut QWEEK 01/27/22 empagliflozin 25 mg tablet 25 mg PO DAILY 01/27/22 insulin glargine U-300 conc 300 unit/mL (3 mL) subcutaneous pen (Toujeo Max U- 300 SoloStar) 60 unit subcut DAILY 01/27/22 levothyroxine 100 mcg capsule 200 mcg PO DAILY 01/27/22 metformin 500 mg tablet 1,000 mg PO BID 01/27/22 rosuvastatin 20 mg tablet 20 mg PO DAILY 01/27/22 aspirin 81 mg tablet,delayed release (Adult Low Dose Aspirin) 81 mg PO DAILY 03/19/23 irbesartan 300 mg-hydrochlorothiazide 12.5 mg tablet 1 tab PO DAILY 03/19/23 sildenafil 25 mg tablet 50 mg PO DAILY PRN erectile dysfunction 07/10/23
--- NOTE | 2023-07-11 14:24 | CASEMGMT ---
Patient has order for discharge. RN CM in to discuss needs at discharge. Patient denies needs or help at discharge. Patient had no further questions or concern.
[2023-07-11 14:30] VITALS: BP 147/76; PULSE 72; RESP 17; TEMP 36.6; O2SAT 95
== END 2023-07-11 13:58 | disposition home or self-care (01) ==
LOC: ED 15:25 → PCU 21:14
PROVIDERS: Admitting Provider Internal Medicine; Emergency Provider Student in an Organized Health Care Education/Training Program; PCP Student in an Organized Health Care Education/Training Program; Visit Provider Student in an Organized Health Care Education/Training Program
DX: R42 Dizziness and giddiness (principal); K74.60 Unspecified cirrhosis of liver; D69.6 Thrombocytopenia, unspecified; E11.9 Type 2 diabetes mellitus without complications; Z79.4 Long term (current) use of insulin; Z86.73 Personal history of transient ischemic attack (TIA), and cerebral infarction without residual deficits; F17.220 Nicotine dependence, chewing tobacco, uncomplicated; Z79.84 Long term (current) use of oral hypoglycemic drugs; E03.9 Hypothyroidism, unspecified; D75.1 Secondary polycythemia; E78.00 Pure hypercholesterolemia, unspecified; I10 Essential (primary) hypertension; H53.8 Other visual disturbances; Z79.899 Other long term (current) drug therapy; Z79.890 Hormone replacement therapy
CPT/HCPCS: 36415; 70450; 70496; 70498; 70551; 71045; 80048; 80053; 80061; 80076; 80320; 82140; 82607; 82962; 83735; 84443; 85025; 85610; 87631; 93005; 93306; 96360; 96361; 97161; 97165; 99221; 99285; J7030; Q9967; A4216; G0378; G0480

== ENCOUNTER → 2023-09-06 | Outpatient (CLI) | payer OTHER, SELFPAY ==
--- NOTE | 2023-09-06 07:15 | US_ITS ---
STUDY: ABDOMINAL ULTRASOUND - RIGHT UPPER QUADRANT; ELASTOGRAPHY REASON FOR VISIT: Male, 58 years old. Cirrhosis. TECHNIQUE: Ultrasound evaluation of the right upper quadrant was performed with real-time and static pryor-scale imaging. Point quantification shear wave elastography was performed ([employer]). TECHNICAL QUALITY: Adequate. COMPARISON: Comparison is made with prior study December 28, 2022. FINDINGS: Liver: The liver is enlarged and measures 20.1 cm. There is a heterogeneous echogenicity of the liver. The bile ducts are within normal limits. There is hepatic color flow. The direction of portal flow is hepatopetal. There is no demonstrated mass lesion. Median liver stiffness measured 13.7 kPa. Gallbladder: Normal distended gallbladder. The gallbladder wall measures 2.4 mm. There is a negative sonographic [place]''s sign. There is no pericholecystic fluid. There are multiple echogenic structures within the gallbladder, consistent with multiple gallstones. Common Bile Duct (C.B.D.): The common bile duct measures 3.3 mm. Pancreas: There is normal echogenicity of the visualized pancreas. There is no demonstrated pancreatic mass or cyst. Right Kidney: Normal size of the right kidney. The right kidney measures 12.4 cm x 6.9 cm x 5.7 cm. Normal renal cortex. The right cortex measures 1.6 cm. There is a 4.9 cm x 5.5 cm x 4.8 cm cyst in the upper pole. There is no right hydronephrosis. US/ABD Limited w/ Elastography IMPRESSION: 1. Liver stiffness measures 13.7 kPa compatible with F3-F4 (Moderate to severe liver fibrosis) Metavir score. Electronically Signed: Mk Molina MD at 14:16 EDT ,
== END | disposition home or self-care (01) ==
LOC: US 07:13
PROVIDERS: PCP Student in an Organized Health Care Education/Training Program; Referring Provider Internal Medicine; Visit Provider Internal Medicine
DX: D75.1 Secondary polycythemia (principal); K74.60 Unspecified cirrhosis of liver
CPT/HCPCS: 76705; 76981

== ENCOUNTER → 2024-02-12 | Outpatient (CLI) | payer OTHER, SELFPAY ==
[2024-02-12 13:22] LABS: Absolute Lymphocyte Count 0.67 X10^3/uL (0.83-4.51); Absolute Neutrophil Count 3.8 X10^3/uL (2.0-7.7); Basophil# 0.05 X10^3/uL; Eosinophil# 0.15 X10^3/uL; Eosinophils% 2.9 % (0-5); Hematocrit 46.7 % (40-54); Hemoglobin 14.4 g/dL (13.0-16.5); Lymphocyte # 0.67 X10^3/ul (0.83-4.51); Lymphocyte % 13.1 % (19-41); Mean Corp Hgb Conc 30.8 g/dL (32-36); Mean Corpuscular Hgb 25.5 pg (27.0-32.0); Mean Corpuscular Volume 82.8 fL (80-94); Monocyte# 0.42 X10^3/uL; Monocyte% 8.2 % (0-10); NRBC Flagged by Analyzer 0 % (0-5); Neutrophil # 3.79 X10^3/uL (2.7-7.7); Platelet Count 103 K/mm3 (150-450); RBC Distribution Width CV 18.6 % (11.6-14.6); RBC Distribution Width SD 55.5 fl (35.1-43.9); Red Blood Count 5.64 M/mm3 (4.6-6.2); White Blood Count 5.1 K/mm3 (4.4-11.0)
[2024-02-12 13:36] LABS: Vitamin B12 564 pg/mL (211-911)
[2024-02-12 13:47] LABS: International Normalized Ratio 1.2; Prothrombin Time (Protime)PT. 14.7 SECONDS (11.7-14.9)
[2024-02-12 14:09] LABS: AST(SGOT) 21 U/L (15-37); Alanine Aminotransfer ALT/SGPT 34 U/L (16-61); Albumin, Serum 3.9 g/dL (3.2-5.0); Alkaline Phosphatase 143 U/L (45-117); Anion Gap 7 (5-15); BUN 20 mg/dL (7-18); Calcium,Total 9.5 mg/dL (8.5-10.1); Chloride 102 mmol/L (98-107); Cholesterol 248 mg/dL (200); Creatinine, Serum 1.81 mg/dL (0.70-1.30); EST Glomerular Filtration Rate 41 mL/min (>60); Est Glom Filt Rate - Afr Amer 49 mL/min (>60); Globulin 3.8 g/dL (2.2-4.2); Glucose 170 mg/dL (74-106); High Density Lipoprotein 72 mg/dL; Potassium 4.5 mmol/L (3.5-5.1); Protein, Total 7.7 g/dL (6.4-8.2); Sodium Level 135 mmol/L (136-145); T4 Free Direct 0.56 ng/dL (0.76-1.46); Triglycerides 173 mg/dL; Very Low Density Lipoprotein 35 mg/dL (5-40)
[2024-02-14 08:13] LABS: AFP, Tumor Marker 2.6 ng/mL (0.0-8.4)
== END | disposition home or self-care (01) ==
LOC: LAB 12:08
PROVIDERS: PCP Student in an Organized Health Care Education/Training Program; Referring Provider Internal Medicine; Visit Provider Internal Medicine
DX: K74.60 Unspecified cirrhosis of liver (principal); D75.1 Secondary polycythemia; E78.5 Hyperlipidemia, unspecified; R94.6 Abnormal results of thyroid function studies; R63.4 Abnormal weight loss
CPT/HCPCS: 36415; 80053; 80061; 82105; 82607; 83036; 84439; 84443; 85025; 85610

== ENCOUNTER → 2024-05-15 | Outpatient (CLI) | payer OTHER, SELFPAY ==
--- NOTE | 2024-05-15 09:54 | US_ITS ---
STUDY: ABDOMINAL ULTRASOUND - RIGHT UPPER QUADRANT; ELASTOGRAPHY REASON FOR VISIT: Male, 58 years old. Cirrhosis. TECHNIQUE: Ultrasound evaluation of the right upper quadrant was performed with real-time and static pryor-scale imaging. Point quantification shear wave elastography was performed ([employer]). TECHNICAL QUALITY: Adequate. COMPARISON: Comparison is made with prior study of September 06, 2023. FINDINGS: Liver: The liver is enlarged and measures 18.3 cm. There is a heterogeneous echogenicity of the liver. The bile ducts are within normal limits. There is hepatic color flow. The direction of portal flow is hepatopetal. There is no demonstrated mass lesion. Median liver stiffness measured 11.9 kPa. Gallbladder: Normal distended gallbladder. The gallbladder wall measures 1.3 mm. There is a negative sonographic [place]''s sign. There is no pericholecystic fluid. Sludge and small gallstones are seen along the dependent portion of the gallbladder lumen. Common Bile Duct (C.B.D.): The common bile duct measures 3.9 mm. Pancreas: There is increased echogenicity of the pancreas. There is no demonstrated pancreatic mass or cyst. Right Kidney: Normal size of the right kidney. The right kidney measures 11.1 cm x 6.7 cm x 6.2 cm. Normal renal cortex. The right cortex measures 1.7 cm. There is a 6.1 cm x 6 x 4.9 cm cyst in the upper pole. This is unchanged. There is no right hydronephrosis. IMPRESSION: 1. Liver stiffness measures 11.9 kPa compatible with F2-F3 (Mild to moderate liver fibrosis) Metavir score. This has improved. 2. Small gallstones and sludge in the gallbladder lumen. 3. Stable right renal cyst. Electronically Signed: Mk Molina MD at 14:31 EST , STUDY: ABDOMINAL ULTRASOUND - LEFT UPPER QUADRANT REASON FOR EXAM: Male, 58 years old. Cirrhosis -- including spleen. TECHNIQUE: Transabdominal ultrasound was performed with real-time and static pryor scale imaging. TECHNICAL QUALITY: Adequate. COMPARISON: None. FINDINGS: Spleen: There is splenomegaly. The spleen measures 16.3 cm x 7.2 cm x 7.3 cm. US/ABD Limited w/ Elastography IMPRESSION: Splenomegaly. Electronically Signed: Mk Molina MD at 14:32 EST ,
== END | disposition home or self-care (01) ==
LOC: US 09:51
PROVIDERS: PCP Student in an Organized Health Care Education/Training Program; Referring Provider Internal Medicine; Visit Provider Internal Medicine
DX: K74.60 Unspecified cirrhosis of liver (principal)
CPT/HCPCS: 76705; 76981